=== PATIENT | male | born 1950 | race African-American/Black ===

== ENCOUNTER 2019-11-26 14:56 | Inpatient (IN) | payer OTHER ==
[2019-11-26] MEDS ORDERED: methylPREDNISolone NA SUCC 125 MG/2 ML VIAL IVPB ONE (15:02)
--- NOTE | 2019-11-26 15:02 | PDOC ---
Rapid Medical Evaluation Medical Evaluation: I have performed a brief in-person evaluation of this patient. The patient presents with a chief complaint of: hx of HTN, sciatica, COPD (not on oxygen), with chronic SOB, worsening yesterday; used COPD meds without much relief of sxs Pertinent physical exam findings: tachypneic, +wheezing I have ordered the following: labs, ekg, cxr, meds The patient will proceed to the ED for further evaluation. 11/26/19 14:58
[2019-11-26] MEDS ORDERED: ALBUTEROL SO4 2.5/IPRATROPIUM 0.5 INH SOL 3 ML VIAL.NEB. NEB ONE (15:37)
[2019-11-26] MEDS ORDERED: methylPREDNISolone NA SUCC 125 MG/2 ML VIAL ONE (15:38)
[2019-11-26] MEDS: ALBUTEROL SO4 2.5/IPRATROPIUM 0.5 INH SOL 3 ML VIAL.NEB. NEB SCH ×3 (15:45→16:39)
--- NOTE | 2019-11-26 15:52 | PDOC ---
History of Present Illness - General Chief Complaint: Shortness of Breath Stated Complaint: SOB Time Seen by Provider: 11/26/19 14:58 - History of Present Illness Initial Comments: 69M PMH HTN COPD (not on home O2) Sciatica presenting from chiropractors office for SOB/STALEY x 3 days. Associated nonproductive cough and runny nose, + sick contacts. No f/c. Endorses nonradiating left sided chest pain yesterday that has since resolved, nonexertional. Pt also has sciatic pain that has been constant since 11/08 and unresponsive to ibuprofen. Radiates down to right leg. Started when pt was picking up his and took a bad step on the . Denies numbness, tingling, focal weakness, groin anesthesia, and bowel/bladder incontinence. Pt has had imaging of his back s/p work accident. Denies n/v/d. Allergy to PCN and sulfa drugs. Former smoker Past History - Past Medical History Allergies/Adverse Reactions: Allergies Allergy/AdvReac Type Severity Reaction Status Date / Time Penicillins Allergy Severe Hives Verified 11/26/19 16:06 Sulfa (Sulfonamide Allergy Severe Hives Verified 11/26/19 16:06 Antibiotics) Home Medications: Ambulatory Orders Amlodipine Besylate 10 mg PO HS 11/26/19 Budesonide/Formeterol Fumarate [SYMBICORT 160/4.5mcg -] 1 inh PO BID 11/26/19 Acetaminophen [Tylenol -] 1,000 mg PO Q6H PRN #120 tablet 11/29/19 Albuterol Sulfate Inhaler - [Ventolin HFA Inhaler -] 1 - 2 inh PO Q4H PRN #1 inhaler 11/29/19 Gabapentin [Neurontin -] 300 mg PO TID #90 capsule 11/29/19 Ibuprofen 400 mg PO Q6H PRN #60 tablet 11/29/19 Pantoprazole Sodium 40 mg PO DAILY #30 tablet. 11/29/19 Ropinirole HCl [Requip -] 0.25 mg PO HS #30 tablet 11/29/19 Tiotropium [place] [Spiriva Respimat] 2 puff IH DAILY #1 inhaler 11/29/19 predniSONE [Deltasone -] 20 mg PO UTDICT #4 tablet 11/29/19 COPD: Yes HTN: Yes Hypercholesterolemia: Yes Other medical history: cervical and lower back problems - Psycho Social/Smoking Cessation Hx Smoking History: Never smoked Hx Alcohol Use: No Drug/Substance Use Hx: No Review of Systems - Review of Systems Comments:: CONSTITUTIONAL: Denies F / C. Endorses sick contacts. HEENT: Denies headache, lightheadedness, dizziness, changes in vision / hearing , diplopia, blurry vision, sore throat, rhinorrhea RESP: Endorses SOB/STALEY, cough. CARD: Endorsed prior since resolved chest pain GI: Endorses occasional mild epigastric abd pain. Denies N / V / D, bloody stool , inability to tolerate PO, bowel incontinence. : Denies dysuria, hematuria, frequency. Denies bladder incontinence SKIN: Denies rashes NEURO: Denies numbness, tingling, focal weakness (does state his RLE is weaker but 2/2 pain and is usual). MSK: Endorses back pain *Physical Exam - Vital Signs Last Vital Signs Temp Pulse Resp BP Pulse Ox 97.4 F L 109 H 24 H 147/95 100 11/26/19 14:56 11/26/19 14:56 11/26/19 14:56 11/26/19 14:56 11/26/19 14:56 - Physical Exam VITALS: tachycardic, SaO2 97%, rectal temp 100.1 GEN: Dyspnic, moderate distress due to pain. AAOx3. HEENT: NC/AT. No facial asymmetry. Normal voice. Supple neck w/ FROM. CV: S1/S2, RRR, no m/r/g LUNG: Poor air movement b/l; prolonged expiratory phase w/ expiratory wheezes. Saturating well on RA. No crackles. Increased work of breathing. GI: Mild TTP of the epigastrium otherwise soft, ndnt, +BS, no guarding, no rebound. No masses EXTREMITIES: No LE edema. No obvious deformities of all extremities. FROM LLE, limited ROM RLE 2/2 pain. Poor LE reflexes but symmetric. SKIN: Warm, dry, no rashes appreciated. PSYCH: Normal mood and affect. NEURO: 5/5 LLE strength. strength testing limited on RLE but 5/5 plantar and dorsiflexion. Symmetric sensation. Heart Score/ECG Review - History History: Slightly suspicious - Electrocardiogram EKG: Normal - Age Age: >/= 65 - Risk Factors Risk Factors Heart Score: Yes Hx Hypertension, Yes Smoking History Based on the list above the patient has:: 1-2 risk factors - Troponin Troponin: </= normal limit - Score Heart Score - Total: 3 ED Treatment Course - LABORATORY CBC & Chemistry Diagram: 11/29/19 07:50 11/29/19 07:50 Medical Decision Making - Medical Decision Making 11/26/19 15:50 69M PMH HTN COPD (not on home O2) Sciatica presenting from chiropractors office for SOB/STALEY x 3 days in setting of sciatic pain since 11/08. Neurologically intact but limited exam 2/2 pain. Tight/reduced air movt, expiratory wheezes. Tachycardic. Apparent discomfort from pain. DDx - COPD exacerbation, bronchitis, ACS, PE; sciatica - RME labs - duonebs - CXR, EKG - pain ctrl - BCX, flu swab less tight, better movt, still expiratory wheezes b/l s/p 2 duonebs 11/26/19 18:23 pt is feeling much better s/p tylenol pt breathing much better s/p 3 duonebs, and solu-medrol On rpt exam: noticably less discomfort; equal air entry b/l, improved movement, less expiratory wheezing vs prior exam Pt seen resting and in no apparent distress. - obtaining CTA r/o PE - Mag and NS hanging now 11/26/19 19:37 f/u CTA - CT A/P - B/L Duplex 11/26/19 20:00 CTA IMPRESSION: Evaluation for possible pulmonary embolism is limited as noted above. No obvious central pulmonary embolism is seen. Repeat CT angiography may be considered and/or correlation with bilateral lower extremity venous sonography. No infiltrate or pleural effusion is identified. Possible 0.5 cm right upper lobe ground glass pulmonary nodule. Correlation with 3 month follow-up noncontrast CT is suggested. 11/26/19 20:26 EKG HR 109 NV 134 QRS 78 QTc 433; sinus on rhythm strip. No acute path on CT A/P 11/26/19 20:57 Neg DVT study b/l // admitted Discharge - Discharge Information Problems reviewed: Yes Clinical Impression/Diagnosis: COPD exacerbation, Chest pain Condition: Stable - Admission Yes - Follow up/Referral - Patient Discharge Instructions - Post Discharge Activity
[2019-11-26] MEDS ORDERED: ACETAMINOPHEN 1000 MG/100 ML VIAL (NON FORMULARY) IVPB ONE (16:03)
[2019-11-26] MEDS ORDERED: FAMOTIDINE 20 MG/50 ML IVPB 20 MG/50 ML MG IVPB ONE ×2 (16:05→16:24)
[2019-11-26] MEDS ORDERED: MAGNESIUM SULF 50% (8.12 MEQ/2 ML-1 GM VIAL) IVPB ONE (16:12)
[2019-11-26 16:19] LABS: VENOUS PC02 40.9 mmHg (38-52); VENOUS PH 7.36 (7.31-7.41)
[2019-11-26 16:20] LABS: VENOUS PO2 < 49 mmHg (28-48)
[2019-11-26] MEDS ORDERED: ACETAMINOPHEN INJECTION 100 ML IVPB ONE (16:21)
[2019-11-26 16:23] LABS: BASO % 0.4 % (0-2.0); EOS % 0.9 % (0-4.5); HEMATOCRIT 45.6 % (35.4-49); HEMOGLOBIN 15.2 GM/dL (11.7-16.9); MCH 26.9 pg (25.7-33.7); MCHC 33.3 g/dl (32.0-35.9); MEAN CELL VOLUME 80.7 fl (80-96); MEAN PLT VOLUME 7.6 fl (7.5-11.1); MONO % 16.4 % (3.8-10.2); NEUT % 66.3 % (42.8-82.8); PLATELET COUNT 191 K/MM3 (134-434); RBC 5.65 M/mm3 (4.00-5.60); RDW 13.5 % (11.9-15.9); WHITE BLOOD COUNT 7.1 K/mm3 (4.0-10.0)
[2019-11-26 16:29] LABS: INR 1.03 (0.83-1.09); PROTHROMBIN TIME (PATIENT) 12.2 SEC (9.7-13.0)
[2019-11-26 16:32] LABS: ACTIVATED PTT 32.4 SECONDS (25.2-36.5)
--- NOTE | 2019-11-26 16:34 | PDOC ---
Attending Attestation - Resident Resident Name: Dong Keane - ED Attending Attestation I have performed the following: I have examined & evaluated the patient, The case was reviewed & discussed with the resident, I agree w/resident's findings & plan, Exceptions are as noted - HPI HPI: 11/26/19 16:32 69y M hx of htn, copd sent by chiropractor for matthews, cough and tachycardia. pt endorses nonproductive cough, mild chest pain on the left side that is pleuritic in nature. Patient states his COPD is usually pretty well controlled and he does not regularly use his albuterol however he did use it today with minimal improvement. pt endorses subjective fever/chills. The patient also endorses several weeks of worsening right lower back pain radiating to his right thigh it is worse with movements associated with some tingling down his right leg notes this is chronic he has had a history of herniated disks in the lumbar spine however he was well until approximately 6 to 7 weeks ago when he re -exacerbated his back pain. Patient denies any urinary bowel incontinence, focal weakness, saddle anethesia exam: GENERAL: The patient is awake, alert, and fully oriented, Nontoxic - in no acute distress. HEAD: Normocephalic, atraumatic. EYES: extraocular movements intact, sclera anicteric, conjunctiva clear. ENT: Normal voice, Moist mucous membranes. NECK: Normal range of motion, supple LUNGS: diffuse wheezing bilaerally, moderate respiratory distress. HEART: Regular rate and rhythm, normal S1 and S2 without murmur, rub or gallop. BACK: Mild diffuse right lower back tenderness, no focal bony tenderness, slightly diminished sensation on the right lower extremity ABDOMEN: Soft, nontender, No guarding, no rebound. No CVA tenderness EXTREMITIES: Normal range of motion, movement of right lower extremity limited secondary to back pain NEUROLOGICAL: No facial assymetry, Normal speech, PSYCH: Normal mood, normal affect. SKIN: Warm, Dry, normal turgor, back pain: like sciatcia - will treat with nsaids/tylenol sob - will ro pna, flu, possible copd exacerbation, but consider PE will obtain labs, flu swab, cxr will gie neb, magnesium solumedrol - Physicial Exam PE: see above - Medical Decision Making see above signed out to evening team a 7pm for reevluation and dispo
[2019-11-26 16:36] LABS: ALBUMIN 4.2 g/dl (3.4-5.0); ALK PHOS 117 U/L (45-117); ANION GAP 9 MMOL/L (8-16); BILIRUBIN,TOTAL 0.4 mg/dL (0.2-1); BLOOD UREA NITROGEN 14.8 mg/dL (7-18); CALCIUM 9.3 mg/dL (8.5-10.1); CHLORIDE 105 mmol/L (98-107); CO2 23 mmol/L (21-32); CREATININE 1.1 mg/dL (0.55-1.3); GLUCOSE,RANDOM 85 mg/dL (74-106); POTASSIUM 3.9 mmol/L (3.5-5.1); SGOT/AST 31 U/L (15-37); SGPT/ALT 27 U/L (13-61); SODIUM 137 mmol/L (136-145); TOT PROT 7.7 g/dl (6.4-8.2)
[2019-11-26] MEDS ORDERED: SODIUM CHLORIDE 1,000 ML IV STA (17:48)
[2019-11-26] MEDS ORDERED: MAGNESIUM 1GM/D5W - 2 GM/200 ML IVPB IVPB ONE (18:05)
[2019-11-26] MEDS ORDERED: KETOROLAC TROMETHAMINE 15 MG/ML VIAL IVPUSH ONE (21:07)
--- NOTE | 2019-11-26 21:12 | PN ---
Teaching Attending Note Name of Resident: Debbie Friedman ATTENDING PHYSICIAN STATEMENT I saw and evaluated the patient. I reviewed the resident's note and discussed the case with the resident. I agree with the resident's findings and plan as documented. SUBJECTIVE: Patient is a 69 year old man with a PMH of Penicillin/Sulfa allergy, Marijuana use, HTN, Lumbar herniated disks, COPD (not on home O2) and Sciatica presenting from Chiropractor's office for SOB/STALEY x 3 days. Associated nonproductive cough and runny nose and had contact with his sick grandson. No fever or chills. Had nonradiating, nonexertional left sided chest pain yesterday that has since resolved. Patient also has sciatic pain that has been constant since 11/08 and unresponsive to Ibuprofen. Radiates down to right leg. Started when patient was picking up his and took a bad step on the . Denies numbness, tingling, focal weakness, groin anesthesia, and bowel/bladder incontinence. He has had imaging of his back after work accident. Denies nausea, vomiting, diarrhea, dysuria, headache or dizziness. No recent travel. Former smoker. Denies current alcohol, tobacco or illicit drug use beside marijuana. OBJECTIVE: Alert Vital Signs Period Temp Pulse Resp BP Sys/[place] Pulse Ox Last 24 Hr 97.4 F-100.1 F 105-109 19-24 140-147/95-99 97-100 HEENT: No Jaundice, eye redness or discharge, PERRLA, EOMI. Normocephalic, atraumatic. External ears are normal and hearing is grossly intact. No nasal discharge. Neck: Supple, nontender. No palpable adenopathy or thyromegaly. No JVD Chest: Good effort. Expiratory wheezing. Clear to percussion. Heart: Regular. No S3, rub or murmur Abdomen: Not distended, soft, nontender and no HSM. No rebound or guarding. Normal bowel sounds. Ext: Peripheral pulses intact. No leg edema. Skin: Warm and dry. No petechiae, rash or ecchymosis. Neuro: Alert. Oriented x3. CN 2-12 grossly intact. Sensation grossly intact in all four extremities. RUE weakness. Psych: Appropriate mood and affect. Good insight. Home Medications Medication Instructions Recorded Amlodipine Besylate 10 mg PO HS 11/26/19 Budesonide/Formeterol Fumarate 1 inh PO BID 11/26/19 [SYMBICORT 160/4.5mcg -] Abnormal Lab Results 11/26/19 11/26/19 11/26/19 15:45 15:45 21:00 RBC 5.65 H Monocytes % 16.4 H POC VBG pO2 < 49 H VBG HCO3 22.7 L VBG Base Excess -2.1 L Lipase 56 L ASSESSMENT AND PLAN: 1. COPD exacerbation - Likely precipitated by URI. CXR shows hyperinflation but no acute infiltrates. No acute vascular abnormality noted on CT of abdomen/ pelvis. CTA chest didnot show a pulmonary embolism, but noted a RUL nodule that will be followed up. Flu swab is negative. EKG shows sinus tachycardia at 109/ minute and LAE. In the ER he got IV Toradol, IV Tylenol, IV NS, Solumedrol, MgSO 4 and IV Pepcid. Will continue duoneb, solumedrol, symbicort and azithromycin. Will continue comprehensive care for all of patients comorbid conditions. 2. Hypertension - Restart suitable outpatient antihypertensive drugs when clinically appropriate. Revise regimen to ensure [id number] excellent BP control and safety counselor patient on the injurious effects of uncontrolled hypertension. Nonpharmacologic measures to control hypertension like weight loss , salt restriction and exercise discussed. Importance of adherence to treatment regimen and attainment of normotension emphasized. 3. DVT prophylaxis - Lovenox 40 mg SQ q 24 hours. 4. Advance directives - Full code
[2019-11-26] MEDS ORDERED: KETOROLAC TROMETHAMINE 15 MG/ML VIAL ONE (21:19)
--- NOTE | 2019-11-26 23:02 | HP ---
CHIEF COMPLAINT:SOB/STALEY PCP: Dr Peraza HISTORY OF PRESENT ILLNESS: 69 year old man with a PMH of COPD, Penicillin/Sulfa allergy, HTN, BPH, Lumbar herniated disks with Sciatica presenting from Chiropractor's office for SOB/STALEY x 3 days. Pt admits to having associated nonproductive cough and runny nose since last after his grandson who had a cold visited . No fever or chills. He also endorsed a pressure like nonradiating, nonexertional left sided chest pain yesterday that has since resolved. 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 Denies numbness, tingling, focal weakness, perianal anesthesia, and bowel/bladder incontinence, nausea, vomiting, diarrhea, dysuria, headache or dizziness. No recent travel. Former smoker. ER course was notable for: (1) VS with 100.1 rectal -> 97.4, CBC unremarkable, CMP unremarkable, trop negx2 , flu neg (2) UA pending , EKG sinus tachycardia (3) CXR clear, CTA no evidence of PE, duplex US of BLE neg for DVT Recent Travel: none PAST MEDICAL HISTORY: as above PAST SURGICAL HISTORY: Lipoma removal, Green light prostate surgery Social History: Smoking:former smoker 1pack over 3 days. quit 20 yrs ago Alcohol: social Drugs: 1 marijuana joint on weekend Allergies Penicillins Allergy (Severe, Verified 11/26/19 16:06) Hives Sulfa (Sulfonamide Antibiotics) Allergy (Severe, Verified 11/26/19 16:06) Hives HOME MEDICATIONS: Home Medications Medication Instructions Recorded Amlodipine Besylate 10 mg PO HS 11/26/19 Budesonide/Formeterol Fumarate 1 inh PO BID 11/26/19 [SYMBICORT 160/4.5mcg -] REVIEW OF SYSTEMS CONSTITUTIONAL: Absent: fever, chills, diaphoresis, generalized weakness, malaise, loss of appetite, weight change HEENT: Absent: rhinorrhea, nasal congestion, throat pain, throat swelling, difficulty swallowing, mouth swelling, ear pain, eye pain, visual changes CARDIOVASCULAR: chest pain Absent: , syncope, palpitations, irregular heart rate, lightheadedness, peripheral edema RESPIRATORY: cough, shortness of breath, dyspnea with exertion Absent: orthopnea, wheezing, stridor, hemoptysis GASTROINTESTINAL: Absent: abdominal pain, abdominal distension, nausea, vomiting, diarrhea, constipation, melena, hematochezia GENITOURINARY: Absent: dysuria, frequency, urgency, hesitancy, hematuria, flank pain, genital pain MUSCULOSKELETAL: back pain Absent: myalgia, arthralgia, joint swelling, neck pain SKIN: Absent: rash, itching, pallor HEMATOLOGIC/IMMUNOLOGIC: Absent: easy bleeding, easy bruising, lymphadenopathy, frequent infections ENDOCRINE: Absent: unexplained weight gain, unexplained weight loss, heat intolerance, cold intolerance NEUROLOGIC: Absent: headache, focal weakness or paresthesias, dizziness, unsteady gait, seizure, mental status changes, bladder or bowel incontinence PSYCHIATRIC: Absent: anxiety, depression, suicidal or homicidal ideation, hallucinations. PHYSICAL EXAMINATION Vital Signs - 24 hr 11/26/19 11/26/19 11/26/19 14:56 15:30 17:04 Temperature 97.4 F L 100.1 F H Pulse Rate 109 H Pulse Rate [ Right Radial] Respiratory 24 H Rate Blood Pressure 147/95 Blood Pressure [Right Arm] O2 Sat by Pulse 100 99 Oximetry (%) 11/26/19 11/26/19 11/26/19 19:40 22:16 22:54 Temperature 97.4 F L 97.6 F Pulse Rate Pulse Rate [ 105 H 95 H Right Radial] Respiratory 19 Rate Blood Pressure Blood Pressure 140/99 161/94 [Right Arm] O2 Sat by Pulse 97 98 96 Oximetry (%) GENERAL: Awake, alert, and fully oriented, in mod distress. HEAD: Normal with no signs of trauma. EYES: Pupils equal, round and reactive to light, extraocular movements intact, sclera anicteric, conjunctiva clear. No lid lag. EARS, NOSE, THROAT: oropharynx clear without exudates. Moist mucous membranes. NECK: Normal range of motion, supple without lymphadenopathy, JVD, or masses. LUNGS: Breath sounds equal, clear to auscultation bilaterally. mild-mod diffused wheezes, and no crackles. No accessory muscle use. HEART: Regular rate and rhythm, normal S1 and S2 without murmur, rub or gallop. ABDOMEN: Soft, epigastric tenderness, not distended, normoactive bowel sounds, no guarding, no rebound, no masses. No hepatomegaly or splenomegaly. MUSCULOSKELETAL: Normal range of motion at all joints. No bony deformities or tenderness. No CVA tenderness. UPPER EXTREMITIES: 2+ pulses, warm, well-perfused. No cyanosis. No clubbing. No peripheral edema. LOWER EXTREMITIES: 2+ pulses, warm, well-perfused. No calf tenderness. No peripheral edema. NEUROLOGICAL: Cranial nerves II-XII intact. Normal speech. motor strength 5/5 in all musce groups except for hip flexion and knee flexion on the right 3/5. sensation reduced on L5 distribution. walks with cane PSYCHIATRIC: Cooperative. Good eye contact. Appropriate mood and affect. SKIN: Warm, dry, normal turgor, no rashes or lesions noted, normal capillary refill. Laboratory Results - last 24 hr 11/26/19 11/26/19 11/26/19 15:45 15:45 15:45 WBC 7.1 RBC 5.65 H Hgb 15.2 Hct 45.6 MCV 80.7 MCH 26.9 MCHC 33.3 RDW 13.5 Plt Count 191 MPV 7.6 Absolute Neuts (auto) 4.7 Neutrophils % 66.3 Lymphocytes % 16.0 Monocytes % 16.4 H Eosinophils % 0.9 Basophils % 0.4 Nucleated RBC % 0 PT with INR INR PTT (Actin FS) VBG pH POC VBG pCO2 POC VBG pO2 VBG HCO3 VBG O2 Sat (Nadya) VBG Base Excess Sodium 137 Potassium 3.9 Chloride 105 Carbon Dioxide 23 Anion Gap 9 BUN 14.8 Creatinine 1.1 Est GFR (CKD-EPI)AfAm 78.41 Est GFR (CKD-EPI)NonAf 67.66 Random Glucose 85 Calcium 9.3 Total Bilirubin 0.4 AST 31 ALT 27 Alkaline Phosphatase 117 Troponin I < 0.02 B-Natriuretic Peptide 65.2 Total Protein 7.7 Albumin 4.2 Lipase Influenza A (Rapid) Influenza B (Rapid) 11/26/19 11/26/19 11/26/19 15:45 15:45 18:00 WBC RBC Hgb Hct MCV MCH MCHC RDW Plt Count MPV Absolute Neuts (auto) Neutrophils % Lymphocytes % Monocytes % Eosinophils % Basophils % Nucleated RBC % PT with INR 12.20 INR 1.03 PTT (Actin FS) 32.4 VBG pH 7.36 POC VBG pCO2 40.9 POC VBG pO2 < 49 H VBG HCO3 22.7 L VBG O2 Sat (Nadya) 75.8 VBG Base Excess -2.1 L Sodium Potassium Chloride Carbon Dioxide Anion Gap BUN Creatinine Est GFR (CKD-EPI)AfAm Est GFR (CKD-EPI)NonAf Random Glucose Calcium Total Bilirubin AST ALT Alkaline Phosphatase Troponin I B-Natriuretic Peptide Total Protein Albumin Lipase Influenza A (Rapid) Negative Influenza B (Rapid) Negative 11/26/19 11/26/19 21:00 21:00 WBC RBC Hgb Hct MCV MCH MCHC RDW Plt Count MPV Absolute Neuts (auto) Neutrophils % Lymphocytes % Monocytes % Eosinophils % Basophils % Nucleated RBC % PT with INR INR PTT (Actin FS) VBG pH POC VBG pCO2 POC VBG pO2 VBG HCO3 VBG O2 Sat (Nadya) VBG Base Excess Sodium Potassium Chloride Carbon Dioxide Anion Gap BUN Creatinine Est GFR (CKD-EPI)AfAm Est GFR (CKD-EPI)NonAf Random Glucose Calcium Total Bilirubin AST ALT Alkaline Phosphatase Troponin I < 0.02 B-Natriuretic Peptide Total Protein Albumin Lipase 56 L Influenza A (Rapid) Influenza B (Rapid) ASSESSMENT/PLAN: 69 year old man with a PMH of COPD, Penicillin/Sulfa allergy, HTN, BPH, Lumbar herniated disks with Sciatica presenting from Chiropractor's office for SOB/STALEY x 3 days with +sick contact and URI symptoms. admitted for COPD exacerbation and worsening sciatic/back pain COPD exacerbation 2/2 recent URI cough, runny nose, +sick contact, low grade temp on admission received solumedrol 125, duonebs, mag, orfimev will cont with solumedrol 40 Q8h duonebs, symbicort, ventolin PRN NC 2L as needed Acute worsening of Chronic back pain and sciatica in the setting of recent "pulled back" pt has hx of chronic back pain s/p trauma in 2013, sciatica from lumbar disc disease currently having constant 7/10 pain radiating down to right leg with neuro PE findings above will start topical lidocaine patch, bengae, toradol, tylenol PRN consider neuro/pain management HTN currently BP stable at 140/99 mmHg cont home meds once med rec DVT Lovenox daily Admit to med surge Visit type - Emergency Visit Emergency Visit: Yes ED Registration Date: 11/26/19 Care time: The patient presented to the Emergency Department on the above date and was hospitalized for further evaluation of their emergent condition. - New Patient This patient is new to me today: No - Critical Care Critical Care patient: No ATTENDING PHYSICIAN STATEMENT I saw and evaluated the patient. I reviewed the resident's note and discussed the case with the resident. I agree with the resident's findings and plan as documented. SUBJECTIVE: OBJECTIVE: ASSESSMENT AND PLAN:
[2019-11-27] MEDS ORDERED: ALBUTEROL SO4 2.5/IPRATROPIUM 0.5 INH SOL 3 ML VIAL.NEB. NEB PRN (01:39)
[2019-11-27] MEDS: methylPREDNISolone NA SUCC 40 MG/1 ML VIAL IVPUSH SCH ×3 (02:12→18:00)
[2019-11-27] MEDS ORDERED: ACETAMINOPHEN 325 MG TABLET (FP) ONE (04:29)
[2019-11-27] MEDS ORDERED: KETOROLAC TROMETHAMINE 15 MG/ML VIAL ONE (04:32)
[2019-11-27] MEDS ORDERED: ALBUTEROL SO4 2.5/IPRATROPIUM 0.5 INH SOL 3 ML VIAL.NEB. NEB ONE ×2 (04:35→08:42)
[2019-11-27] MEDS: ACETAMINOPHEN 325 MG TABLET (FP) PO PRN (04:37)
[2019-11-27] MEDS: ALBUTEROL SO4 0.083% IH SOL 2.5 MG/3 ML VIAL.NEB. NEB PRN (04:37)
[2019-11-27] MEDS: KETOROLAC TROMETHAMINE 15 MG/ML VIAL IVPUSH PRN ×3 (04:37→18:01)
[2019-11-27 06:09] LABS: BASO % 0.9 % (0-2.0); HEMATOCRIT 45.1 % (35.4-49); HEMOGLOBIN 14.8 GM/dL (11.7-16.9); LYMPH % 11.7 % (8-40); MCH 26.5 pg (25.7-33.7); MCHC 32.8 g/dl (32.0-35.9); MEAN CELL VOLUME 80.8 fl (80-96); MEAN PLT VOLUME 7.6 fl (7.5-11.1); MONO % 4.8 % (3.8-10.2); NEUT % 82.6 % (42.8-82.8); PLATELET COUNT 209 K/MM3 (134-434); RBC 5.58 M/mm3 (4.00-5.60); RDW 13.6 % (11.9-15.9); WHITE BLOOD COUNT 3.7 K/mm3 (4.0-10.0)
[2019-11-27 06:40] LABS: ALBUMIN 4.1 g/dl (3.4-5.0); BILIRUBIN,TOTAL 0.3 mg/dL (0.2-1); BLOOD UREA NITROGEN 19.1 mg/dL (7-18); CALCIUM 9.2 mg/dL (8.5-10.1); CREATININE 1.1 mg/dL (0.55-1.3); MAGNESIUM 2.4 mg/dL (1.8-2.4); PHOSPHOROUS 3.3 mg/dL (2.5-4.9); POTASSIUM 4.5 mmol/L (3.5-5.1); TOT PROT 7.9 g/dl (6.4-8.2)
[2019-11-27] MEDS: ALBUTEROL SO4 2.5/IPRATROPIUM 0.5 INH SOL 3 ML VIAL.NEB. NEB SCH ×4 (08:45→20:35)
--- NOTE | 2019-11-27 09:30 | EKG ---
Test Reason : Blood Pressure : / mmHG Vent. Rate : 109 BPM Atrial Rate : 109 BPM P-R Int : 134 ms QRS Dur : 078 ms QT Int : 322 ms P-R-T Axes : 079 068 061 degrees QTc Int : 433 ms SINUS TACHYCARDIA POSSIBLE LEFT ATRIAL ENLARGEMENT BORDERLINE ECG NO PREVIOUS ECGS AVAILABLE Confirmed by Jean Viveros MD ([id number]) on 11/27/2019 9:29:51 AM Referred By: Confirmed By:Jean Viveros MD
[2019-11-27] MEDS ORDERED: BUDESONIDE/FORMETEROL FUMARATE 80/4.5 mcg INHALER IH SCH (10:00)
[2019-11-27] MEDS: amLODIPine BESYLATE 10 MG TABLET (FP) PO SCH ×2 (10:15→11:38)
[2019-11-27] MEDS ORDERED: AZITHROMYCIN IVPB 500 MG/250 ML BAG IVPB ONE (10:37)
[2019-11-27] MEDS ORDERED: amLODIPine BESYLATE 5 MG TABLET (FP) ONE (10:37)
[2019-11-27] MEDS ORDERED: KETOROLAC TROMETHAMINE 60 MG/2 ML VIAL ONE (10:57)
[2019-11-27] MEDS: LIDOCAINE 5% TOPICAL PATCH TP SCH (11:13)
[2019-11-27] MEDS: ENOXAPARIN NA (PORCINE) 40 MG/0.4 ML DISP.SYRIN SQ SCH (11:13)
[2019-11-27] MEDS: METHYL SALICYLATE/MENTHOL OINT 30 GM TUBE TP SCH ×2 (11:13→21:54)
[2019-11-27] MEDS: BUDESONIDE/FORMETEROL FUMARATE 160/4.5 mcg INHALER IH SCH ×3 (11:14→22:00)
[2019-11-27] MEDS: AZITHROMYCIN IVPB 250 MG in DEXTROSE 5%-WATER - 250 ML IVPB SCH ×2 (11:16→11:38)
[2019-11-27] MEDS ORDERED: PNEUMOC 13-VAL CONJ-DIP CRM/PF 0.5 ML DISP.SYRIN IM ONE (14:00)
[2019-11-27] MEDS ORDERED: oxyCODONE HCL 5 MG TABLET PO ONE ×2 (14:00→18:45)
[2019-11-27] MEDS ORDERED: FLU VACCINE QUAD 60 MCG/0.5 ML (MDV 19-20) IM ONE (14:00)
--- NOTE | 2019-11-27 17:12 | PN ---
Teaching Attending Note Name of Resident: Milton Perdue ATTENDING PHYSICIAN STATEMENT I saw and evaluated the patient. I reviewed the resident's note and discussed the case with the resident. I agree with the resident's findings and plan as documented. SUBJECTIVE: SOB, but improved. Has pain in lower back with radiation to the RLE. Pain and weakness in RLE is worse than baseline. Weakness in RUE and neck pain is still the same. No urinary or fecal incontinence. OBJECTIVE: NAD, became very SOB when he tried to move LE due to pain . CV: RRR, n o MRG Lungs: scattered wheezing b/l. prolonged exp phase Ext : No edema or erythema Neuro: EOMI, round equal pupils, no facial droop. strength : RUE: 4/5 sholder abduction , and biceps/triceps . LUE: 5/5 shoudler shrug, abduction , and biceps /triceps RLE: hip flexion 1/5 ( limited by pain) , Knee flexion and extension( he refused due to pain ) . ankle dorsiflexion/plantar flexion 5/5. LLE: hip flexion , knee flexion /extension, ankle dorsiflexion/plantar flexion 5 /5. sensation : decreased to light touch in R leg and dorsal foot. increased in R sole, and equal in both thighs. reflexes : 1+ R knee jerk and 2+ L knee jerk ASSESSMENT AND PLAN: 69 y/o man with h/o Marijuana use, HTN, Lumbar herniated disks, COPD and Sciatica who presented with SOb and worsening RLE weakness and lower back pain. 1- Acute COPD exacerbation 2- Worsening lower back pain RLE weakness. 3- Pulmonary nodule: 0.5 cm in RUL. 4- HTN plan : - order MRI of the L spine. - lidocaine patch to lower back - cont steroids and nebs - cont inhalers - add low dose azithro, x 3 days - f/u as out pt for pulmonary nodule - lovenox for DVT px
--- NOTE | 2019-11-27 18:05 | PN ---
Physical Exam: SUBJECTIVE: Patient seen and examined at the bedside. Patient stated that he has significant pain in his right back radiating down his leg. Endorsed shortness of breath, palpitations, productive cough. Denied cp, abd pain, n/v/c/ d, headaches, dizziness, lightheadedness. OBJECTIVE: Vital Signs Period Temp Pulse Resp BP Sys/[place]illa Pulse Ox Last 24 Hr 97.4 F-98.1 F 70-108 18-22 140-167/78-99 96-99 GENERAL: The patient is awake, alert, and fully oriented, in mild acute distress. HEAD: Normal with no signs of trauma. EYES: PERRL, extraocular movements intact. ENT: Oropharynx clear without exudates, moist mucous membranes. LUNGS: Mild expiratory wheezes, decreased breath sounds, no crackles noted, no accessory muscle use. HEART: Regular rate and rhythm, S1, S2 without murmur, rub. ABDOMEN: Soft, nontender, nondistended, normoactive bowel sounds, no guarding, no rebound, no masses. EXTREMITIES: 2+ pulses, warm, well-perfused, no edema. NEUROLOGICAL: Cranial nerves II through XII grossly intact. 4/5 R upper extremity proximally. 2/5 muscle strength on the RLE proximally, 5/5 distally. All other extremities 5/5 muscle strength. Decreased sensation to gross touch on the R lower extremity distally. PSYCH: Normal mood, normal affect. SKIN: Warm, dry, normal turgor, no rashes or lesions noted. Laboratory Results - last 24 hr 11/26/19 11/26/19 11/26/19 18:00 21:00 21:00 WBC RBC Hgb Hct MCV MCH MCHC RDW Plt Count MPV Absolute Neuts (auto) Neutrophils % Lymphocytes % Monocytes % Eosinophils % Basophils % Nucleated RBC % Sodium Potassium Chloride Carbon Dioxide Anion Gap BUN Creatinine Est GFR (CKD-EPI)AfAm Est GFR (CKD-EPI)NonAf Random Glucose Calcium Phosphorus Magnesium Total Bilirubin AST ALT Alkaline Phosphatase Troponin I < 0.02 Total Protein Albumin Lipase 56 L Influenza A (Rapid) Negative Influenza B (Rapid) Negative 11/27/19 11/27/19 05:45 05:45 WBC 3.7 L RBC 5.58 Hgb 14.8 Hct 45.1 MCV 80.8 MCH 26.5 MCHC 32.8 RDW 13.6 Plt Count 209 MPV 7.6 Absolute Neuts (auto) 3.1 Neutrophils % 82.6 D Lymphocytes % 11.7 D Monocytes % 4.8 Eosinophils % 0.0 D Basophils % 0.9 Nucleated RBC % 0 Sodium 137 Potassium 4.5 Chloride 106 Carbon Dioxide 22 Anion Gap 10 BUN 19.1 H Creatinine 1.1 Est GFR (CKD-EPI)AfAm 78.41 Est GFR (CKD-EPI)NonAf 67.66 Random Glucose 151 H Calcium 9.2 Phosphorus 3.3 Magnesium 2.4 Total Bilirubin 0.3 AST 26 ALT 30 Alkaline Phosphatase 113 Troponin I Total Protein 7.9 Albumin 4.1 Lipase Influenza A (Rapid) Influenza B (Rapid) Active Medications Generic Name Dose Route Start Last Admin Trade Name Freq PRN Reason Stop Dose Admin Acetaminophen 650 mg 11/27/19 01:34 11/27/19 04:37 Tylenol - PO 650 mg Q4H PRN Administration PAIN LEVEL 1 - 3 Albuterol Sulfate 1 amp 11/27/19 01:34 11/27/19 04:37 Ventolin 0.083% Nebulizer Soln - NEB 1 amp Q6H PRN Administration SHORT OF BREATH/WHEEZING Albuterol/Ipratropium 1 amp 11/27/19 08:00 11/27/19 08:45 Duoneb - NEB 1 amp RQID FRANCISCO Administration Amlodipine Besylate 10 mg 11/27/19 11:00 11/27/19 11:38 Norvasc - PO Not Given DAILY FRANCISCO Budesonide/Formoterol Fumarate 1 puff 11/27/19 11:30 11/27/19 15:42 Symbicort 160/4.5mcg - IH 1 puff BID FRANCISCO Administration Enoxaparin Sodium 40 mg 11/27/19 10:00 11/27/19 11:13 Lovenox - SQ 40 mg DAILY FRANCISCO Administration Azithromycin 250 mg/ Dextrose 250 mls @ 250 mls/hr 11/27/19 11:00 11/27/19 11 :38 IVPB 11/29/19 10:59 Not Given DAILY FRANCISCO Ketorolac Tromethamine 15 mg 11/27/19 01:34 11/27/19 11:16 Toradol Injection - IVPUSH 12/02/19 01:33 15 mg Q6H PRN Administration PAIN LEVEL 6-10 Lidocaine 1 patch 11/27/19 10:00 11/27/19 11:13 Lidoderm Patch - TP 1 patch DAILY FRANCISCO Administration Methyl Salicylate 1 applic 11/27/19 10:00 11/27/19 11:13 Yaya-Post - TP Not Given BID [facility] Methylprednisolone Sodium Succinate 40 mg 11/27/19 02:00 11/27/19 10:15 Solu-Medrol - IVPUSH 40 mg Q8H-IV FRANCISCO Administration Miscellaneous 1 each 11/27/19 22:00 Lidoderm Patch Removal MC DAILY@2200 [facility] ASSESSMENT/PLAN: Marly Simons is a 69 year old man with a past medical history of COPD, HTN, BPH, Lumbar herniated disks with Sciatica admitted for COPD exacerbation and worsening sciatic/back pain. COPD exacerbation - likely in the setting of URI, with recent sick contact - solumedrol 40 Q8h, can begin to titrate down as patient clinically improves - duonebs standing, symbicort, ventolin PRN - azithromycin 250mg x 3 days - NC 2L as needed Chronic back pain - pt with hx of chronic back pain s/p trauma in 2012, sciatica from lumbar disc disease - topical lidocaine patch - toradol, bengae, tylenol PRN - MRI of the lumbar spine - physical therapy Pulmonary Nodule - will need outpatient pulmonary f/u HTN - continue home amlodipine DVT - Lovenox 40mg subq daily FEN - no standing fluids, encourage PO intake - continue to monitor electrolytes and replete as necessary - sodium controlled diet Dispo - continue to monitor med surg Visit type - Emergency Visit Emergency Visit: Yes ED Registration Date: 11/26/19 Care time: The patient presented to the Emergency Department on the above date and was hospitalized for further evaluation of their emergent condition. - New Patient This patient is new to me today: Yes Date on this admission: 11/27/19 - Critical Care Critical Care patient: No
[2019-11-27] MEDS ORDERED: PT OWN MED DRAWER 7, Y5N ONE (21:21)
[2019-11-27] MEDS: LIDOCAINE PATCH REMOVAL MC SCH (21:55)
[2019-11-28] MEDS: ALBUTEROL SO4 0.083% IH SOL 2.5 MG/3 ML VIAL.NEB. NEB PRN (00:32)
[2019-11-28] MEDS: methylPREDNISolone NA SUCC 40 MG/1 ML VIAL IVPUSH SCH ×3 (01:00→17:09)
[2019-11-28] MEDS: KETOROLAC TROMETHAMINE 15 MG/ML VIAL IVPUSH PRN ×3 (02:57→16:37)
[2019-11-28] MEDS: ACETAMINOPHEN 325 MG TABLET (FP) PO PRN (03:01)
[2019-11-28] MEDS: ALBUTEROL SO4 2.5/IPRATROPIUM 0.5 INH SOL 3 ML VIAL.NEB. NEB SCH ×2 (07:31→11:12)
[2019-11-28 08:16] LABS: BASO % 0.2 % (0-2.0); HEMATOCRIT 41.1 % (35.4-49); HEMOGLOBIN 13.5 GM/dL (11.7-16.9); LYMPH % 6.2 % (8-40); MCH 26.4 pg (25.7-33.7); MCHC 32.8 g/dl (32.0-35.9); MEAN CELL VOLUME 80.2 fl (80-96); MEAN PLT VOLUME 7.6 fl (7.5-11.1); MONO % 5.1 % (3.8-10.2); NEUT % 88.5 % (42.8-82.8); PLATELET COUNT 201 K/MM3 (134-434); RBC 5.12 M/mm3 (4.00-5.60); RDW 13.4 % (11.9-15.9); WHITE BLOOD COUNT 11.4 K/mm3 (4.0-10.0)
[2019-11-28 08:41] LABS: CALCIUM 9.3 mg/dL (8.5-10.1); CREATININE 1.1 mg/dL (0.55-1.3); MAGNESIUM 2.6 mg/dL (1.8-2.4); POTASSIUM 5.1 mmol/L (3.5-5.1)
--- NOTE | 2019-11-28 09:18 | PN ---
Physical Exam: SUBJECTIVE: Patient seen and examined at the bedside. Noted that he felt better but still continued to take shortness of breath and a cough. Continued to endorse pain in his right lower leg and numbness in the lower portion of the R extremity. Denies cp, abd pain, n/v/c/d, fever, chills, dizziness, lightheadedness. OBJECTIVE: Vital Signs Period Temp Pulse Resp BP Sys/Sevilla Pulse Ox Last 24 Hr 97.7 F-98.2 F 70-106 18-20 120-159/72-84 97-99 GENERAL: The patient is awake, alert, and fully oriented, in mild acute distress. HEAD: Normal with no signs of trauma. EYES: PERRL, extraocular movements intact. ENT: Oropharynx clear without exudates, moist mucous membranes. LUNGS: Mild expiratory wheezes, decreased breath sounds, coarse breath sounds, no crackles noted, no accessory muscle use. HEART: Regular rate and rhythm, S1, S2 without murmur, rub. ABDOMEN: Soft, nontender, nondistended, normoactive bowel sounds, no guarding, no rebound, no masses. EXTREMITIES: 2+ pulses, warm, well-perfused, no edema. NEUROLOGICAL: Cranial nerves II through XII grossly intact. 4/5 R upper extremity proximally. 2/5 muscle strength on the RLE proximally, 5/5 distally. All other extremities 5/5 muscle strength. Decreased sensation to gross touch on the R lower extremity distally. PSYCH: Normal mood, normal affect. SKIN: Warm, dry, normal turgor, no rashes or lesions noted. Laboratory Results - last 24 hr 11/28/19 11/28/19 07:35 07:35 WBC 11.4 H RBC 5.12 Hgb 13.5 Hct 41.1 MCV 80.2 MCH 26.4 MCHC 32.8 RDW 13.4 Plt Count 201 MPV 7.6 Absolute Neuts (auto) 10.1 H Neutrophils % 88.5 H Lymphocytes % 6.2 L D Monocytes % 5.1 Eosinophils % 0.0 Basophils % 0.2 Nucleated RBC % 0 Sodium 138 Potassium 5.1 Chloride 106 Carbon Dioxide 26 Anion Gap 6 L BUN 22.0 H Creatinine 1.1 Est GFR (CKD-EPI)AfAm 78.41 Est GFR (CKD-EPI)NonAf 67.66 Random Glucose 141 H Calcium 9.3 Magnesium 2.6 H Active Medications Generic Name Dose Route Start Last Admin Trade Name Freq PRN Reason Stop Dose Admin Acetaminophen 650 mg 11/27/19 01:34 11/28/19 03:01 Tylenol - PO 650 mg Q4H PRN Administration PAIN LEVEL 1 - 3 Albuterol Sulfate 1 amp 11/27/19 01:34 11/28/19 00:32 Ventolin 0.083% Nebulizer Soln - NEB 1 amp Q6H PRN Administration SHORT OF BREATH/WHEEZING Albuterol/Ipratropium 1 amp 11/27/19 08:00 11/28/19 07:31 Duoneb - NEB 1 amp RQID FRANCISCO Administration Amlodipine Besylate 10 mg 11/27/19 11:00 11/27/19 11:38 Norvasc - PO Not Given DAILY [facility] Budesonide/Formoterol Fumarate 1 puff 11/27/19 11:30 11/27/19 22:00 Symbicort 160/4.5mcg - IH 1 puff BID FRANCISCO Administration Enoxaparin Sodium 40 mg 11/27/19 10:00 11/27/19 11:13 Lovenox - SQ 40 mg DAILY FRANCISCO Administration Azithromycin 250 mg/ Dextrose 250 mls @ 250 mls/hr 11/27/19 11:00 11/27/19 11 :38 IVPB 11/29/19 10:59 Not Given DAILY FRANC[facility]CO Ketorolac Tromethamine 15 mg 11/27/19 01:34 11/28/19 02:57 Toradol Injection - IVPUSH 12/02/19 01:33 15 mg Q6H PRN Administration PAIN LEVEL 6-10 Lidocaine 1 patch 11/27/19 10:00 11/27/19 11:13 Lidoderm Patch - TP 1 patch DAILY FRANCISCO Administration Methyl Salicylate 1 applic 11/27/19 10:00 11/27/19 21:54 Yaya-Post - TP 1 applic BID FRANCISCO Administration Methylprednisolone Sodium Succinate 40 mg 11/27/19 02:00 11/28/19 01:00 Solu-Medrol - IVPUSH 40 mg Q8H-IV FRANCISCO Administration Miscellaneous 1 each 11/27/19 22:00 11/27/19 21:55 Lidoderm Patch Removal MC 1 each DAILY@2200 FRANCISCO Administration Lumbar MRI L2-L3. Facet joint arthropathy. Mild degenerative retrolisthesis of L2 on L3 is suggested. Circumferential disc bulge extending beyond the contour adjacent endplates in all directions. No compression of L2 nerves traversing through the neural foramina. There is remodeling of the superior posterior corner of L3 sequela of chronic degenerative discogenic disease. Right subarticular, right lateral recess extruded disc causing stenosis of the right lateral recess of L3 effacing the epidural fat deforming the thecal sac compressing right L3 nerve within the right lateral recess of L3. L4-L5. Hypertrophic facet joint arthropathy with thickened ligamentum flavum. Grade 1 degenerative anterior spondylolisthesis of L4 on L5 (6mm). Exposed posterior annulus within the right neural foramen contacting the right L4 nerve. ASSESSMENT/PLAN: Marly Simons is a 69 year old man with a past medical history of COPD, HTN, BPH, Lumbar herniated disks with Sciatica admitted for COPD exacerbation and worsening sciatic/back pain. COPD exacerbation - likely in the setting of URI, with recent sick contact - will start prednisone 60mg tomorrow - ventolin prn - spiriva - can restart symbicort when off of steroids - Xopinex tid - continue azithromycin 250mg x 3 days, day 2 today - NC 2L as needed - incentive spirometry - will need PFTs outpatient Chronic back pain - pt with hx of chronic back pain s/p trauma in 2012, sciatica from lumbar disc disease - topical lidocaine patch - toradol, bengae, tylenol PRN - gabapentin 300mg tid - MRI of the lumbar spine as above - neurosurgery consulted, recs appreciated, will likely benefit from surgery. can f/u outpatient when stable from pulmonary standpoint - physical therapy Pulmonary Nodule - will need outpatient pulmonary f/u HTN - continue home amlodipine DVT - Lovenox 40mg subq daily FEN - no standing fluids, encourage PO intake - continue to monitor electrolytes and replete as necessary - sodium controlled diet Dispo - continue to monitor med surg Visit type - Emergency Visit Emergency Visit: Yes ED Registration Date: 11/26/19 Care time: The patient presented to the Emergency Department on the above date and was hospitalized for further evaluation of their emergent condition. - New Patient This patient is new to me today: No - Critical Care Critical Care patient: No
[2019-11-28] MEDS: LIDOCAINE 5% TOPICAL PATCH TP SCH (09:26)
[2019-11-28] MEDS: amLODIPine BESYLATE 10 MG TABLET (FP) PO SCH (09:26)
[2019-11-28] MEDS: ENOXAPARIN NA (PORCINE) 40 MG/0.4 ML DISP.SYRIN SQ SCH (09:26)
[2019-11-28] MEDS: METHYL SALICYLATE/MENTHOL OINT 30 GM TUBE TP SCH ×3 (09:28→22:12)
[2019-11-28] MEDS: BUDESONIDE/FORMETEROL FUMARATE 160/4.5 mcg INHALER IH SCH (09:28)
--- NOTE | 2019-11-28 10:13 | PN ---
Progress Note (short form) - Note Progress Note: NEUROSURGERY CONSULT DICTATED Chart reviewed Pt examined MRI LS spine reviewed h/o COPD, HTN, BPH, Lumbar HNP c/o SOB/STALEY x 3 days. + nonproductive cough and runny nose. No fever or chills. Since 11/08, Patient has been experiencing constant 8/10 sciatica pain after "pulling his back" .The pain is unresponsive to Ibuprofen, and radiates down to right lateral thigh and lateral gupta. + weakness and leg gives out sometimes. + numbness and burning. Had R posterior thigh pain and R anterior thigh pain previously. Denies perianal anesthesia, and bowel/bladder incontinence, PE: General- unremarkable CN- intact; Motor- R IP/thigh adductors 4-, R TA/Ev/Quad 4/5; Sensation- decreased LT/vibration R L3-4; DTR- hyporeflexic; + SLR on R at 30 degrees MRI LS- multilevel DDD and facet hypertrophy; mild L2-3 retrolisthesis with broadbased and B foramenal disc protrusion; subarticular disc fragment with R L3 root impingement and thecal sac impingement; L4-5 spondylolisthesis and lateral recess stenosis R L2-3 HNP with acute-subacute R L3 radiculopathy Trial of neurontin Consider pain management for EPSI Given recent respiratory infection would not recommend surgery at this time, though given his weakness/numbness surgery may be the optimal tx option when he recovers Pt understands the above
[2019-11-28] MEDS: AZITHROMYCIN IVPB 250 MG in DEXTROSE 5%-WATER - 250 ML IVPB SCH (12:19)
[2019-11-28] MEDS ORDERED: ALBUTEROL SO4 0.083% IH SOL 2.5 MG/3 ML VIAL.NEB. NEB PRN (12:22)
[2019-11-28] MEDS: GABAPENTIN 300 MG CAPSULE PO SCH ×2 (13:39→22:12)
[2019-11-28] MEDS: TIOTROPIUM BROMIDE 2.5 MCG (SPIRIVA) RESPIMAT INHALER IH SCH (13:39)
--- NOTE | 2019-11-28 13:51 | CONS ---
DATE OF CONSULTATION: 11/28/2019 CHIEF COMPLAINT: Right L3-L4 radiculopathy. REQUESTING PHYSICIAN: Dr. Milton Perdue STUDIO SET UP WORKER: Andrés Alan MD, Neurosurgery HISTORY OF PRESENT ILLNESS: Patient is a 69-year-old male with a history of lower back pain with right-sided sciatica, COPD, hypertension, and BPH who was admitted for a 3-day history of increasing dyspnea as well as dyspnea on exertion. He also had an associated productive cough but denies any fevers or chills. He stated that he has had lower back pain, right-sided sciatica going down to the right anterior thigh and occasionally the right posterior thigh over the past few days. They would generally resolve with the passage of time, and they are not generally severe or persistent. 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 This is associated with subjective weakness right leg, and his right leg gives out at times. There is also numbness in the right thigh. Pain is rated as an 8 on a 1-10 scale. He thought he had pulled his back back then. His pain did not respond to ibuprofen or chiropractor treatment. He has numbness and burning in the right similar distribution. He denies perianal anesthesia or any bowel/bladder incontinence. He has not tried epidural steroid injections. PAST MEDICAL HISTORY: Significant for COPD, hypertension, BPH, lumbar hernia disk with sciatica. CURRENT MEDICATIONS: Include Symbicort, Lidoderm patch, Solu-Medrol, Tylenol, azithromycin, Lovenox, albuterol inhaler, Norvasc, DuoNeb, Toradol, and Bengay. ALLERGIES: PENICILLIN and SULFA. SOCIAL HISTORY: He does not smoke anymore. He drinks alcohol socially. He lives at home with his . He is retired. REVIEW OF SYSTEMS: Otherwise negative for major constitutional, head, neck, cardiovascular, pulmonary, gastrointestinal, genitourinary, endocrinological, neurological, or psychological problems except for the above. He has no history of systemic malignancy. PHYSICAL EXAMINATION: Vital Signs: Temperature 98.2, blood pressure 120/72, pulse rate 80, O2 saturation 97% on room air. HEENT: Shows him to be normocephalic, atraumatic, anicteric. Neck: Supple. Coronary: Demonstrates regular rhythm. Lungs: Clear bilaterally. Abdomen: Benign. Extremities: Shows no obvious signs of DVT. Neurologic: He is awake, alert, and oriented x3. Cranial nerve examination is intact 2-12. Motor examination shows 5/5 strength except right iliopsoas and thigh adducts, which are 4-, right quadriceps and tibialis anterior, and for eversion, which is 4/5. Sensory examination demonstrates diminished light touch and vibratory sensation in right L3 and right L4 distribution. Deep tendon reflexes are hyporeflexive throughout. There are no pathological or long tract sign. Musculoskeletal: Examination of lower back shows right sciatic notch tenderness. He has a positive straight leg raise on the right side at 30 degrees. DIAGNOSTIC DATA: Laboratory examination demonstrated a white count of 11.4, hemoglobin 13.5, platelet count 201,000, INR 1.03, and PTT 32.4. Serum sodium is 138, potassium 5.1, BUN 22, creatinine 1.1. Influenza tests were negative. MRI examination of the lumbar spine demonstrated multilevel degenerative disk disease. There is degenerative disk space narrowing at L2-3 with endplate molding changes. There is facet hypertrophy. There are bridging osteophytes. Mild retrolisthesis noted to L2-3. There is a right lateral recess extruded disk herniation in a subarticular joint area, which resulted in thecal sac and right L3 nerve root impingement. At L3-4 there is a broad-based disk bulge with moderate right L3-4 foraminal narrowing. There is L4-5 facet hypertrophy with degenerative spondylolisthesis. There is right-sided L4-5 foraminal stenosis. Lower extremity Doppler did not demonstrate any DVT. IMPRESSION: 1. Right L2-3 extruded disk herniation with thecal sac and L3 nerve root impingement resulting in acute L3 radiculopathy. 2. Right L3-4 and L4-5 narrowing/foraminal stenosis with chronic intermittent lumbar L4-5 radiculopathy. 3. Hypertension. 4. Chronic obstructive pulmonary disease. 5. Recent respiratory infection. RECOMMENDATIONS: Patient presents with exacerbation of his right L3 greater than L4 radiculopathy. His pain radiates down to the buttocks and left thigh down to the right lateral gupta. He has weakness of the proximal right lower extremity as well as his foot eversion and tibialis anterior. He also has numbness in L3 and L4 distribution. He has a positive straight leg raise on the right. He does have multilevel degenerative disk disease, but he also has a concurrent extruded disk herniation on the right side at L2-3 in the lateral recess into the subarticular region. This results in thecal sac right L3 nerve root impingement. He has elements of L3-4 and L4-5 lateral recess narrowing with foraminal stenosis, which contributes to his intermittent sciatica as well in the L4 and L5 distribution. The patient has a recent respiratory infection and should be treated for such first. A trial of Neurontin 300 mg 3 times a day is recommended. If the pain persists, epidural steroid injection could potentially be helpful for temporary pain relief. Given his weakness and numbness of the right lower extremity, surgical intervention may eventually be needed to optimally address his current problems. The patient has not wanted surgery in the past, but this recurrence since October has been persistent, and the pain has been more severe. We did discuss the pros and cons of treatment approaches, and all questions were answered at the bedside. ANDRÉS ALAN M.D. [id number]
[2019-11-28] MEDS: LEVALBUTEROL HCL 0.31 MG/3 ML VIAL.NEB IH SCH ×2 (14:51→20:47)
[2019-11-28 16:07] VITALS: BMI 25.0
[2019-11-28] MEDS ORDERED: rOPINIRole HCL 0.25 MG TABLET PO ONE (16:50)
[2019-11-28] MEDS ORDERED: oxyCODONE HCL 5 MG TABLET PO ONE (16:51)
--- NOTE | 2019-11-28 17:22 | PN ---
Teaching Attending Note Name of Resident: Milton Perdue ATTENDING PHYSICIAN STATEMENT I saw and evaluated the patient. I reviewed the resident's note and discussed the case with the resident. I agree with the resident's findings and plan as documented. Seen and examined; please see resident note for further historical information. I personally verified all [place] historical information and exam findings. Personally interpreted all imaging and diagnostics and reviewed appropriate consults. I reviewed all labs and vital signs as per resident note and EMR as documented. I agree with the above assessment and plan unless supplemented by myself in the following. Complains of chronic cramping pain in his bilateral lower extremity and dependent of the back pain. Sometimes gets worse at night and with physical activity. He does have associated erectile dysfunction. This is suspicious for some degree of claudication, no arterial duplex on file. Checking arterial duplex. Given his discussion of ongoing lower extremity symptoms, though, this is concerning for potential restless leg syndrome. Starting Requip, checking iron studies. VS, labs, imaging reviewed NAD, AAO, resting comfortably in bed. RRR s1/2 no mgr Normal muscle tone, moves all 5 extremities with normal apparent strength Neck is supple, trachea midline, no juvencio LN Lungs CTAB with sym expansion NT ND +BS no juvencio organomegaly CN2-12 wnl; no FND NC AT EOMI PERRLA Normal mood, appropriate behavior, euthymic affect No skin breakdown or rashes noted Arterial Dopplers pending MRI discussed Chest x-ray reviewed EKG reviewed Outpatient PFTs need to be acquired CV Consult reviewed ASSESSMENT AND PLAN: Patient is indicated as having multilevel degenerative joint disease and facet hypertrophy with mild L2-3 retrolisthesis with broad-based foraminal disc protrusion. Neuropathic pain secondary to aforementioned; continues on gabapentin which has helped. Referring the patient for pain management trial for potential epidural steroid injection. Given the recent infection neurology does not recommend surgery at this juncture. Does have radicular elements of this to the lower extremity. Not evolving. COPD exacerbation, continue current management, convert to p.o. and hand-held inhalers prior to discharge. Pulmonary nodule need outpatient pulmonary follow-up
[2019-11-28] MEDS: LIDOCAINE PATCH REMOVAL MC SCH (22:21)
[2019-11-29] MEDS: KETOROLAC TROMETHAMINE 15 MG/ML VIAL IVPUSH PRN ×2 (00:28→09:33)
[2019-11-29] MEDS: ACETAMINOPHEN 325 MG TABLET (FP) PO PRN ×2 (00:33→09:11)
[2019-11-29] MEDS: methylPREDNISolone NA SUCC 40 MG/1 ML VIAL IVPUSH SCH (02:30)
[2019-11-29] MEDS: GABAPENTIN 300 MG CAPSULE PO SCH ×2 (06:19→14:01)
[2019-11-29] MEDS: LEVALBUTEROL HCL 0.31 MG/3 ML VIAL.NEB IH SCH ×2 (07:40→14:20)
--- NOTE | 2019-11-29 08:16 | PN ---
Progress Note (short form) - Note Progress Note: NEUROSURGERY R thigh pain easing slightly PE: General- unremarkable CN- intact; Motor- R IP/thigh adductors 4-, R TA/Ev/Quad 4/5; Sensation- decreased LT/vibration R L3-4; DTR- hyporeflexic; + SLR on R at 30 degrees MRI LS- multilevel DDD and facet hypertrophy; mild L2-3 retrolisthesis with broadbased and B foramenal disc protrusion; subarticular disc fragment with R L3 root impingement and thecal sac impingement; L4-5 spondylolisthesis and lateral recess stenosis R L2-3 HNP with acute-subacute R L3 radiculopathy; R 3-4 and L4-5 stenosis On neurontin Consider pain management for EPSI if persistent pain Given recent respiratory infection, COPD would not recommend surgery at this time (should allow pulmonary condition to return to baseline), though given his weakness/numbness surgery may be the optimal tx option when he recovers Pt understands the above
[2019-11-29] MEDS: amLODIPine BESYLATE 10 MG TABLET (FP) PO SCH (09:12)
[2019-11-29] MEDS: LIDOCAINE 5% TOPICAL PATCH TP SCH (09:12)
[2019-11-29] MEDS: ENOXAPARIN NA (PORCINE) 40 MG/0.4 ML DISP.SYRIN SQ SCH (09:13)
[2019-11-29] MEDS: TIOTROPIUM BROMIDE 2.5 MCG (SPIRIVA) RESPIMAT INHALER IH SCH (09:13)
[2019-11-29 09:23] LABS: BASO % 0.1 % (0-2.0); HEMATOCRIT 40.5 % (35.4-49); HEMOGLOBIN 13.2 GM/dL (11.7-16.9); LYMPH % 5.3 % (8-40); MCH 26.4 pg (25.7-33.7); MCHC 32.6 g/dl (32.0-35.9); MEAN CELL VOLUME 80.8 fl (80-96); MEAN PLT VOLUME 7.9 fl (7.5-11.1); MONO % 5.3 % (3.8-10.2); NEUT % 89.3 % (42.8-82.8); PLATELET COUNT 215 K/MM3 (134-434); RBC 5.01 M/mm3 (4.00-5.60); RDW 13.9 % (11.9-15.9); WHITE BLOOD COUNT 13.7 K/mm3 (4.0-10.0)
[2019-11-29] MEDS: AZITHROMYCIN IVPB 250 MG in DEXTROSE 5%-WATER - 250 ML IVPB SCH (09:33)
[2019-11-29] MEDS: METHYL SALICYLATE/MENTHOL OINT 30 GM TUBE TP SCH (09:33)
[2019-11-29 09:41] LABS: CALCIUM 8.7 mg/dL (8.5-10.1); CREATININE 1.2 mg/dL (0.55-1.3); MAGNESIUM 2.3 mg/dL (1.8-2.4); POTASSIUM 4.7 mmol/L (3.5-5.1)
[2019-11-29] MEDS ORDERED: oxyCODONE HCL 5 MG TABLET PO ONE (09:45)
[2019-11-29] MEDS ORDERED: predniSONE 20 MG TABLET (UD) PO SCH (10:00)
[2019-11-29 15:19] VITALS: BP 108/70; PULSE 82; TEMP 98
--- NOTE | 2019-11-29 18:07 | DS ---
Physical Exam: SUBJECTIVE: Patient seen and examined at the bedside. Patient stated that he felt better but continued to have some shortness of breath and a dry cough. Stated that his leg pain was improving and strength was improving as well. Endorsed good appetite. Denied cp, abd pain, n/v/c/d, fever, chills, headaches, dizziness, lightheadedness, visual changes. OBJECTIVE: Vital Signs Period Temp Pulse Resp BP Sys/[place] Pulse Ox Last 24 Hr 97.8 F-98.4 F 75-99 20-20 108-146/54-95 97-98 PHYSICAL EXAM GENERAL: The patient is awake, alert, and fully oriented, in mild acute distress. HEAD: Normal with no signs of trauma. EYES: PERRL, extraocular movements intact. ENT: Oropharynx clear without exudates, moist mucous membranes. LUNGS: Mild expiratory wheezes, decreased breath sounds, coarse breath sounds, no crackles noted, no accessory muscle use. HEART: Regular rate and rhythm, S1, S2 without murmur, rub. ABDOMEN: Soft, nontender, nondistended, normoactive bowel sounds, no guarding, no rebound, no masses. EXTREMITIES: 2+ pulses, warm, well-perfused, no edema. NEUROLOGICAL: Cranial nerves II through XII grossly intact. 4/5 R upper extremity proximally. 2/5 muscle strength on the RLE proximally, 5/5 distally. All other extremities 5/5 muscle strength. Decreased sensation to gross touch on the R lower extremity distally. PSYCH: Normal mood, normal affect. SKIN: Warm, dry, normal turgor, no rashes or lesions noted. LABS Laboratory Results - last 24 hr 11/28/19 11/29/19 11/29/19 07:35 07:50 07:50 WBC 13.7 H RBC 5.01 Hgb 13.2 Hct 40.5 MCV 80.8 MCH 26.4 MCHC 32.6 RDW 13.9 Plt Count 215 MPV 7.9 Absolute Neuts (auto) 12.3 H Neutrophils % 89.3 H Lymphocytes % 5.3 L Monocytes % 5.3 Eosinophils % 0.0 Basophils % 0.1 Nucleated RBC % 0 Sodium 137 Potassium 4.7 Chloride 105 Carbon Dioxide 25 Anion Gap 7 L BUN 25.0 H Creatinine 1.2 Est GFR (CKD-EPI)AfAm 70.58 Est GFR (CKD-EPI)NonAf 60.90 Random Glucose 118 H Calcium 8.7 Magnesium 2.3 Iron 112 TIBC 251 Iron Saturation 44 H Unsaturated IBC 139 L HOSPITAL COURSE: Marly Simons is a 69 year old man with a past medical history of COPD, HTN, BPH, Lumbar herniated disks with Sciatica admitted for COPD exacerbation and worsening sciatic/back pain. He was started on steroids, azithromycin, and inhalers. Patient completed inpatient antibiotics, will complete steroid course outpatient, will have inhalers outpatient, and will restart symbicort when he completes steroid course. Patient will require PFTs outpatient. On CT scan of the chest, patient was noted to have a pulmonary nodule and will require a [address] and follow up with outpatient pulmonogy. Patient had chronic back pain and had a lumbar MRI which showed numerous findings notably L2-L3. Facet joint arthropathy. Mild degenerative retrolisthesis of L2 on L3 is suggested. Circumferential disc bulge extending beyond the contour adjacent endplates in all directions. No compression of L2 nerves traversing through the neural foramina. There is remodeling of the superior posterior corner of L3 sequela of chronic degenerative discogenic disease. Right subarticular, right lateral recess extruded disc causing stenosis of the right lateral recess of L3 effacing the epidural fat deforming the thecal sac compressing right L3 nerve within the right lateral recess of L3. L4-L5. Hypertrophic facet joint arthropathy with thickened ligamentum flavum. Grade 1 degenerative anterior spondylolisthesis of L4 on L5 (6mm). Exposed posterior annulus within the right neural foramen contacting the right L4 nerve. Patient was seen by neurosurgery and is likely a good candidate for surgical intervention but will require optimization of his pulmonary status. Was prescribed medications for pain control including acetaminophen, ibuprofen, gabapentin, flexeril, lidocaine patch. Was advised to follow up with neurosurgery outpatient. For pain control, patient was advised to follow up with pain management outpatient. Had arterial duplex performed which noted biphasic flow in the optimal right and left OIL WINTERIZER suggestive of mild to moderate infrapopliteal disease. Patient was advised to follow up with vascular surgery outpatient. Patient was seen by physical therapy and was able to ambulate 80 feet with a walker. Walker was sent to the patient's house for ambulation assistance. Was advised of the plan and to complete prednisone for 2 more days, spiriva, ventolin inhaler, gabapentin, ibuprofen, acetaminophen, flexeril, lidocaine patch, ropinirole, pantoprazole, and to follow up with his PCP, neurosurgeon, consulting software engineer, pain management, vascular surgeon. Patient was in agreement with the plan and reiterated it. Patient was discharged in stable medical condition. Date of Admission:11/26/19 Date of Discharge: 11/29/19 Minutes to complete discharge: 35 Discharge Summary Problems reviewed: Yes Reason For Visit: SOB, ABD PAIN, CHEST PAIN Condition: Stable - Instructions Diet, Activity, Other Instructions: You were admitted for worsening of your COPD. You were treated with steroid medications, antibiotics, and inhalers. You will complete steroid medications when you leave the hospital. You had an MRI scan of your back which showed you had some compression of the nerves in your back. You were seen by a neurosurgeon for your back pain and they recommended to start you on pain medications and be evaluated for surgery of the back at a later time when your lung status is more stable. You are advised to follow up with neurosurgeon in the outpatient clinic. MEDICATIONS DO NOT take your Symbicort until you complete your course of prednisone. You may restart your Symbicort on 12/02/19. START taking prednisone 40mg (2 20mg tablets) daily for 2 more days. You last dose will be on 12/01/19 START taking albuterol inhaler 1-2 puffs every 4 hours as needed if you are short of breath. START taking Spiriva inhaler 2 puffs once daily. START taking gabapentin 300mg three times a day. START taking acetaminophen 1000mg every 6 hours only as needed for pain. START taking ibuprofen 400mg every 6 hours only as needed for pain. START taking pantoprazole 40mg daily. START taking ropinirole 0.25mg every night. If you begin to experience symptoms of hallucinations, confusion, dizziness, new rashes and itchiness, please stop this medication and see your doctor. REFERRALS Please follow up with your primary care doctor, Dr. Moe Peraza, within 1 week. Please follow up with the neurosurgeon, Dr. Andrés To, within 1 week. Please follow up with the consulting software engineer, Dr. Elias Rivera, within 1 week. Please follow up with the pain management doctor, Dr. Pavel Samuel, within 1 week. Please follow up with the vascular surgeon, Dr. Max Lynn, within 1 week. SPECIAL INSTRUCTIONS You were found to have a lung nodule on a CT scan. Please follow up the consulting software engineer (lung doctor) for this finding. You will need to get a CT scan of the chest in 3 months. You had a scan of your legs which showed some arteries had some abormal flow. You ere advised to follow up with a vascular surgeon. If you have any symptoms of complete inability to walk, falls with hitting your head, shortness of breath, chest pain, increased cough, fevers, or any other general feelings of unwellness, please call 911 or go your nearest emergency room. Referrals: Elias Rivera MD [Staff Physician] - 2 Weeks Moe Peraza [Primary Care Provider] - 1 Week Andrés To MD [Staff Physician] - 1 Week Max Lynn DO [Staff Physician] - 1 Week Pavel Samuel MD [Staff Physician] - 1 Week Disposition: HOME - Home Medications Comprehensive Discharge Medication List: Ambulatory Orders Amlodipine Besylate 10 mg PO HS 11/26/19 Budesonide/Formeterol Fumarate [SYMBICORT 160/4.5mcg -] 1 inh PO BID 11/26/19 Acetaminophen [Tylenol -] 1,000 mg PO Q6H PRN #120 tablet 11/29/19 Albuterol Sulfate Inhaler - [Ventolin HFA Inhaler -] 1 - 2 inh PO Q4H PRN #1 inhaler 11/29/19 Cyclobenzaprine HCl [Flexeril -] 10 mg PO BID #20 tablet 11/29/19 Gabapentin [Neurontin -] 300 mg PO TID #90 capsule 11/29/19 Ibuprofen 400 mg PO Q6H PRN #60 tablet 11/29/19 Lidocaine 5% Patch [Lidoderm -] 1 patch TP DAILY #7 patch 11/29/19 Pantoprazole Sodium 40 mg PO DAILY #30 tablet. 11/29/19 Ropinirole HCl [Requip -] 0.25 mg PO HS #30 tablet 11/29/19 Tiotropium [place] [Spiriva Respimat] 2 puff IH DAILY #1 inhaler 11/29/19 predniSONE [Deltasone -] 20 mg PO UTDICT #4 tablet 11/29/19 Problem List - Problems (1) Lumbar nerve root compression Code(s): M54.16 - RADICULOPATHY, LUMBAR REGION (2) COPD exacerbation Code(s): J44.1 - CHRONIC OBSTRUCTIVE PULMONARY DISEASE W (ACUTE) EXACERBATION (3) Chest pain Code(s): R07.9 - CHEST PAIN, UNSPECIFIED Qualifiers: Chest pain type: unspecified Qualified Code(s): R07.9 - Chest pain, unspecified This patient is new to me today: No Emergency Visit: Yes ED Registration Date: 11/26/19 Care time: The patient presented to the Emergency Department on the above date and was hospitalized for further evaluation of their emergent condition. Critical Care patient: No - Discharge Referral [facility]erred to [facility] Med [facility].C[facility] Yes Physician Referral: Max Lynn DO ([facility])
--- NOTE | 2019-12-02 15:08 | PN ---
Teaching Attending Note Name of Resident: Milton Perdue ATTENDING PHYSICIAN STATEMENT I saw and evaluated the patient. I reviewed the resident's note and discussed the case with the resident. I agree with the resident's findings and plan as documented. Seen and examined; please see resident note for further historical information. I personally verified all [place] historical information and exam findings. Personally interpreted all imaging and diagnostics and reviewed appropriate consults. I reviewed all labs and vital signs as per resident note and EMR as documented. I agree with the above assessment and plan unless supplemented by myself in the following. 10 item review of systems completed and is negative aside from any issues documented in the HPI VS, labs, imaging reviewed NAD, AAO, resting comfortably in bed. RRR s1/2 no mgr Normal muscle tone, moves all 5 extremities with normal apparent strength Neck is supple, trachea midline, no juvencio LN Lungs CTAB with sym expansion NT ND +BS no juvencio organomegaly CN2-12 wnl; no FND NC AT EOMI PERRLA Normal mood, appropriate behavior, euthymic affect No skin breakdown or rashes noted Overall the patient presented with the aforementioned anatomical potential neurosurgical issue involving degenerative disc disease with facet arthropathy disc bulging and hypertrophic changes. Dr. To did not recommend any inpatient surgical procedure secondary to the ongoing respiratory issues but stated that the patient could follow-up as an outpatient and be seen by pain management as an outpatient for potential epidural steroid injection. The patient has no progressive myelopathic symptoms and is improved in terms of this. He was placed on steroids which did help his symptoms. He is being discharged on Spiriva, Ventolin, gabapentin, ibuprofen, acetaminophen, Flexeril, lidocaine patch, ropinirole, pantoprazole. Of note is the patient states is that this injury is related to old work men's comp injury, and that the pain has been chronic and progressive, but there was no specific acute issue. This was revealed to me as he was leaving. He states that he sometimes has issues getting his medications through Workmen's Comp. Overall the patient has benefited maximum from this hospitalization and he would likely benefit from ongoing follow-up with indicated subspecialist. The patient will follow up with his outpatient provider. Agree with the discharge planning through the present team.
== END 2019-11-29 17:52 | disposition home or self-care (01) | DRG 192 ==
LOC: JER 14:56 → JERBED 20:50 → J6S 11-27 11:24
PROVIDERS: ADMIT Internal Medicine; ATTEND Internal Medicine
DX: J44.1 Chronic obstructive pulmonary disease with (acute) exacerbation (principal); J44.9 Chronic obstructive pulmonary disease, unspecified; J06.9 Acute upper respiratory infection, unspecified; I10 Essential (primary) hypertension; N40.0 Benign prostatic hyperplasia without lower urinary tract symptoms; M51.16 Intervertebral disc disorders with radiculopathy, lumbar region; M54.9 Dorsalgia, unspecified; R91.1 Solitary pulmonary nodule
CPT/HCPCS: 36415; 71046-TC-FY; 71275-TC; 72148-TC; 74176-TC; 80048; 80053; 82803; 83540; 83550; 83690; 83735; 83880; 84100; 84484; 85025; 85610; 85730; 87040; 87804; 90670; 93005; 93010; 93925-TC; 93970-TC; 94010; 94640; 94761; 97116-GP; 97162-GP; 99285-25; G0008; G0009; J0131; J7030; Q2036

== ENCOUNTER 2020-07-19 15:06 | Inpatient (IN) | payer OTHER ==
--- NOTE | 2020-07-19 15:55 | PDOC ---
History of Present Illness <Elenita Morales - Last Filed: 07/19/20 20:18> - History of Present Illness Initial Comments: HPI 69 yo M PMH asthma, COPD, HTN presents with 1 week hx of SOB and dry cough and new onset rash today. Reports nonproductive cough and pleuritic chest pain that began on right side, and is now bilateral. Reports associated weakness and dyspnea on exertion over the past 2-3 days. states that he is unable to sleep flat, uses 2-3 pillows. Reports diffuse, non-pruritic rash when he awoke this am. Reports associated gradual onset of headache, worse with coughing, self-resolving; denies current headache. 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 On previous admission, was found to have a pulmonary nodule. According to pt, nodule was not seen on most recent xray. PCP: Karmen Pulm: did not know spelling of name PMH: HTN, COPD, asthma PSH: see chart Meds: see chart Allergies: penicillin, sulfa (hives) Social: denies tobacco use, reports 1 nip ETOH/day, uses marijuana lozenge daily (medical marijuana) Review of Systems CONSTITUTIONAL:reports generalized weakness; denies fever, chills, diaphoresis, malaise, loss of appetite HEENT:denies rhinorrhea, nasal congestion, sore throat CARDIOVASCULAR:reports chest pain; denies syncope, palpitations, irregular heart rate, lightheadedness, peripheral edema RESPIRATORY:reports nonproductive cough, shortness of breath, dyspnea with exertion, orthopnea, wheezing GASTROINTESTINAL: denies abdominal pain, nausea, vomiting, diarrhea, constipation, melena, hematochezia GENITOURINARY:denies dysuria, frequency, urgency, hematuria MUSCULOSKELETAL:reports chronic back pain HEMATOLOGIC/IMMUNOLOGIC:denies easy bleeding, easy bruising ENDOCRINE: denies unexplained weight gain, unexplained weight loss, NEUROLOGIC:reports headache, denies loss of consciousness, focal weakness or paresthesias, dizziness, unsteady gait, seizure, mental status changes, bladder or bowel incontinence SKIN:denies rash, itching, pallor PSYCHIATRIC:denies anxiety, depression, suicidal or homicidal ideation, hallucinations. Physical Exam General: awake, alert, fully oriented, in no acute distress, well developed, well nourished Head: normocephalic, atraumatic Eyes: PERRL, EOMI, anicteric sclera, conjunctiva clear ENT: Auricles normal inspection, hearing grossly normal, oropharynx clear without exudates, no nasal congestion, moist mucous membranes Neck: supple, normal ROM, no LAD, JVD or masses Lung: decreased breath sounds b/l, CTA b/l, no crackles, wheezes; speaks partial sentences Heart: RRR, normal S1, S2, no murmurs appreciated Abdomen: soft, non tender, normoactive bowel sounds, no guarding, rebound, masses Extremities: no edema, no erythema or tenderness, DP/PT pulses 2+ and symmetric, no clubbing, cyanosis Neuro: CN2-12 grossly intact, moves all extremities, normal speech, sensation intact Skin: diffuse urticarial rash noted throughout chest, and arms MDM 69 yo M PMH asthma, COPD, HTN presents with 1 week hx of SOB and dry cough and new onset rash today. Tachycardic, tachypneic, hypertensive DDx including but not limited to: COPD exacerbation, CHF, ACS, PE, allergic reaction/hives Workup: labs, cxr, ekg [place]: nebs, steroids, benadryl EKG: normal sinus rhythm, HR 97bpm, MN 142ms, QRS 78ms, Qtc 408ms, TWI in AVR CXR - no pneumothorax or pleural effusion. midline airway, appropriate vascular markings, no blunting of costophrenic angle, no cardiomegaly, as read by ED staff labs: no leukocytosis, no anemia Improved air entry on auscultation; improvement of rash on repeat exam. Pt signed out to night team, pending remaining labs <Gaviota Harper - Last Filed: 07/21/20 21:01> - General Chief Complaint: Shortness of Breath Stated Complaint: SHORTNESS OF BREATH, BODY RASH, DIARRHEA Time Seen by Provider: 07/19/20 15:53 Past History <Elenita Morales - Last Filed: 07/19/20 20:18> - Medical History Asthma: Yes COPD: Yes (bronchitis) HTN: Yes Hypercholesterolemia: Yes - Psycho-Social/Smoking History Smoking History: Never smoked Have you smoked in the past 12 months: No If you are a former smoker, when did you quit?: 30 years ago Information on smoking cessation initiated: Yes - Substance Abuse Hx (Audit-C & DAST Scrn) How often the patient has a drink containing alcohol: Never Score: In Men: 4 or > Positive; In Women: 3 or > Positive: 0 Screen Result (Pos requires Nsg. Audit-10AR): Negative In the last yr the pt used illegal drug/Rx for NonMed reason: No Score: Yes response is considered Positive: 0 Screen Result (Positive result requires Nsg. DAST-10): Negative <Gaviota Harper - Last Filed: 07/21/20 21:01> - Medical History Allergies/Adverse Reactions: Allergies Allergy/AdvReac Type Severity Reaction Status Date / Time Penicillins Allergy Severe Hives Verified 07/19/20 15:25 Sulfa (Sulfonamide Allergy Severe Hives Verified 07/19/20 15:25 Antibiotics) Home Medications: Ambulatory Orders Amlodipine Besylate 10 mg PO HS 11/26/19 Budesonide/Formeterol Fumarate [SYMBICORT 160/4.5mcg -] 2 puff IH BID 11/26/19 Acetaminophen [Tylenol -] 1,000 mg PO Q6H PRN #120 tablet 11/29/19 Albuterol Sulfate Inhaler - [Ventolin HFA Inhaler -] 1 - 2 inh PO Q4H PRN #1 inhaler 11/29/19 Fluticasone Prop 0.05% Nasal [Flonase -] 1 - 2 spray NS DAILY PRN 07/20/20 Umeclidinium [place] [Incruse Ellipta] 1 puff IH DAILY 07/20/20 *Physical Exam - Vital Signs Last Vital Signs Temp Pulse Resp BP Pulse Ox 98.3 F 92 H 20 137/91 100 07/19/20 15:21 07/19/20 18:30 07/19/20 18:30 07/19/20 18:30 07/19/20 18:30 <Elenita Morales - Last Filed: 07/19/20 20:18> - Vital Signs Last Vital Signs Temp Pulse Resp BP Pulse Ox 98.3 F 103 H 21 H 136/86 93 L 07/19/20 15:21 07/19/20 15:21 07/19/20 15:21 07/19/20 15:21 07/19/20 15:21 <Gaviota Harper - Last Filed: 07/21/20 21:01> ED Treatment Course - LABORATORY CBC & Chemistry Diagram: 07/19/20 17:50 07/19/20 17:50 - ADDITIONAL ORDERS Additional order review: Laboratory Results 07/19/20 07/19/20 17:50 17:50 PT with INR 11.90 INR 1.01 PTT (Actin FS) 29.6 Sodium 140 Potassium 4.5 Chloride 106 Carbon Dioxide 25 Anion Gap 9 BUN 17.2 Creatinine 1.4 H Est GFR (CKD-EPI)AfAm 58.58 Est GFR (CKD-EPI)NonAf 50.54 Random Glucose 93 Calcium 9.3 Total Bilirubin 0.4 AST 21 ALT 18 Alkaline Phosphatase 99 Creatine Kinase 284 Creatine Kinase Index 0.3 CK-MB (CK-2) 1.1 Troponin I < 0.02 B-Natriuretic Peptide 107.2 Total Protein 7.8 Albumin 4.3 07/19/20 17:50 RBC 5.75 H MCV 81.6 MCHC 32.5 RDW 13.6 MPV 7.7 Neutrophils % 79.1 Lymphocytes % 11.0 D Monocytes % 8.3 Eosinophils % 1.1 D Basophils % 0.5 D - RADIOLOGY Radiology Studies Ordered: Category Date Time Status CHEST CTA [CT] Stat CT Scan 07/19/20 19:40 Ordered - Medications Given in the ED: ED Medications Discontinued Medications Generic Name Dose Route Start Last Admin Trade Name Freq PRN Reason Stop Dose Admin Albuterol/Ipratropium 1 amp 07/19/20 17:45 07/19/20 18:53 Duoneb - NEB 07/19/20 18:31 1 amp Q15M FRANCISCO Administration Diphenhydramine HCl 25 mg 07/19/20 17:38 07/19/20 18:23 Benadryl Injection - IVPB 07/19/20 17:39 25 mg ONCE ONE Administration Methylprednisolone Sodium Succinate 125 mg 07/19/20 17:36 07/19/20 17:45 Solu-Medrol - IVPUSH 07/19/20 17:37 125 mg ONCE ONE Administration <Elenita Morales - Last Filed: 07/19/20 20:18> - LABORATORY CBC & Chemistry Diagram: 07/21/20 10:06 08/31/20 10:06 <Gaviota Harper - Last Filed: 07/21/20 21:01> Discharge <Elenita Morales - Last Filed: 07/19/20 20:18> - Discharge Information Problems reviewed: Yes - Admission Yes <Gaviota Harper - Last Filed: 07/21/20 21:01> - Discharge Information Clinical Impression/Diagnosis: SOB (shortness of breath) Condition: Stable
[2020-07-19] MEDS ORDERED: methylPREDNISolone NA SUCC 125 MG/2 ML VIAL IVPUSH ONE (17:36)
[2020-07-19] MEDS ORDERED: ALBUTEROL SO4 2.5/IPRATROPIUM 0.5 INH SOL 3 ML VIAL.NEB. NEB ONE ×2 (17:39→18:51)
[2020-07-19] MEDS ORDERED: methylPREDNISolone NA SUCC 125 MG/2 ML VIAL ONE (17:40)
[2020-07-19] MEDS: ALBUTEROL SO4 2.5/IPRATROPIUM 0.5 INH SOL 3 ML VIAL.NEB. NEB SCH ×4 (17:40→18:53)
[2020-07-19 18:01] LABS: BASO % 0.5 % (0-2.0); EOS % 1.1 % (0-4.5); HEMOGLOBIN 15.3 GM/dL (11.7-16.9); MCH 26.5 pg (25.7-33.7); MCHC 32.5 g/dl (32.0-35.9); MEAN CELL VOLUME 81.6 fl (80-96); MEAN PLT VOLUME 7.7 fl (7.5-11.1); MONO % 8.3 % (3.8-10.2); NEUT % 79.1 % (42.8-82.8); PLATELET COUNT 190 K/MM3 (134-434); RBC 5.75 M/mm3 (4.00-5.60); RDW 13.6 % (11.9-15.9)
[2020-07-19 18:14] LABS: INR 1.01 (0.83-1.09); PROTHROMBIN TIME (PATIENT) 11.9 SEC (9.7-13.0)
[2020-07-19 18:16] LABS: ACTIVATED PTT 29.6 SECONDS (25.2-36.5)
[2020-07-19 18:37] LABS: ALBUMIN 4.3 g/dl (3.4-5.0); ALK PHOS 99 U/L (45-117); ANION GAP 9 MMOL/L (8-16); BILIRUBIN,TOTAL 0.4 mg/dL (0.2-1); BLOOD UREA NITROGEN 17.2 mg/dL (7-18); CALCIUM 9.3 mg/dL (8.5-10.1); CHLORIDE 106 mmol/L (98-107); CO2 25 mmol/L (21-32); CREATININE 1.4 mg/dL (0.55-1.3); GLUCOSE,RANDOM 93 mg/dL (74-106); POTASSIUM 4.5 mmol/L (3.5-5.1); SGOT/AST 21 U/L (15-37); SGPT/ALT 18 U/L (13-61); SODIUM 140 mmol/L (136-145); TOT PROT 7.8 g/dl (6.4-8.2)
[2020-07-19 18:45] LABS: N-TERMINAL BNP 107.2 pg/ml (5-125)
--- NOTE | 2020-07-19 19:28 | PDOC ---
*Physical Exam - Vital Signs Last Vital Signs Temp Pulse Resp BP Pulse Ox 98.3 F 92 H 20 137/91 100 07/19/20 15:21 07/19/20 18:30 07/19/20 18:30 07/19/20 18:30 07/19/20 18:30 ED Treatment Course - LABORATORY CBC & Chemistry Diagram: 07/19/20 17:50 07/19/20 17:50 - ADDITIONAL ORDERS Additional order review: Laboratory Results 07/19/20 07/19/20 17:50 17:50 PT with INR 11.90 INR 1.01 PTT (Actin FS) 29.6 Sodium 140 Potassium 4.5 Chloride 106 Carbon Dioxide 25 Anion Gap 9 BUN 17.2 Creatinine 1.4 H Est GFR (CKD-EPI)AfAm 58.58 Est GFR (CKD-EPI)NonAf 50.54 Random Glucose 93 Calcium 9.3 Total Bilirubin 0.4 AST 21 ALT 18 Alkaline Phosphatase 99 Creatine Kinase 284 Troponin I < 0.02 B-Natriuretic Peptide 107.2 Total Protein 7.8 Albumin 4.3 07/19/20 17:50 RBC 5.75 H MCV 81.6 MCHC 32.5 RDW 13.6 MPV 7.7 Neutrophils % 79.1 Lymphocytes % 11.0 D Monocytes % 8.3 Eosinophils % 1.1 D Basophils % 0.5 D - Medications Given in the ED: ED Medications Discontinued Medications Generic Name Dose Route Start Last Admin Trade Name Connerq PRN Reason Stop Dose Admin Albuterol/Ipratropium 1 amp 07/19/20 17:45 07/19/20 18:53 Duoneb - NEB 07/19/20 18:31 1 amp Q15M FRANCIS[place] Administration Diphenhydramine HCl 25 mg 07/19/20 17:38 07/19/20 18:23 Benadryl Injection - IVPB 07/19/20 17:39 25 mg ONCE ONE Administration Methylprednisolone Sodium Succinate 125 mg 07/19/20 17:36 07/19/20 17:45 Solu-Medrol - IVPUSH 07/19/20 17:37 125 mg ONCE ONE Administration Medical Decision Making - Medical Decision Making 07/19/20 19:27 69 y/o M hx of asthma, copd, htn presenting with sob, chest pressure and new onset rash. pt improved after duonebs treatment will get second troponin. 07/19/20 19:30 Discharge - Follow up/Referral Referrals: Moe Peraza [Primary Care Provider] - - Patient Discharge Instructions - Post Discharge Activity
--- NOTE | 2020-07-19 20:28 | PN ---
Teaching Attending Note Name of Resident: Lavinia Casas ATTENDING PHYSICIAN STATEMENT I saw and evaluated the patient. I reviewed the resident's note and discussed the case with the resident. I agree with the resident's findings and plan as documented. SUBJECTIVE: Patient is a 69 year old man with a PMH of Penicillin/Sulfa allergy, Marijuana u se (?lozenges), Remote IVDU (Cocaine, Heroin), Remote hepatitis C disease, HTN, Lumbar herniated disks, COPD (not on home O2) and Sciatica who presents to the ER with one week of chest pain and a nonproductive cough. As per patient, his symptoms were first localized on the right side, but now presents with bilateral chest pain. Has associated shortness of breath, worsened with exertion and general weakness. Patient states he noticed a diffuse non-itchy rash in both antecubital fossae this morning. states that he is unable to sleep flat, uses 2-3 pillows. Patient denies abdominal pain, leg edema, headache, palpitations, dizziness, fever, chills, nausea, vomiting, diarrhea, constipation, dysuria, frequency, urgency, melena, hematochezia or hematuria. Former heavy smoker (1-2 PPD for over 30 years). Denies alcohol, tobacco or illicit drug use. No sick contacts or recent travels. Family history of CVA and [place] in mother and thyroid cancer in sister. OBJECTIVE: Alert Vital Signs Period Temp Pulse Resp BP Sys/S[place]illa Pulse Ox Last 24 Hr 98.3 F 92-103 20-21 136-137/86-91 93-100 HEENT: No Jaundice, eye redness or discharge, PERRLA, EOMI. Normocephalic, atraumatic. External ears are normal and hearing is grossly intact. No nasal discharge. Neck: Supple, nontender. No palpable adenopathy or thyromegaly. No JVD Chest: Good effort. Expiratory wheezing; prolonged expiration. Clear to percussion. Heart: Regular. No S3, rub or murmur Abdomen: Not distended, soft, nontender and no HSM. No rebound or guarding. Normal bowel sounds. Ext: Peripheral pulses intact. No leg edema. Rash in the antecubital fossae. Skin: Warm and dry. No petechiae, rash or ecchymosis. Neuro: Alert. Oriented x3. CN 2-12 grossly intact. Sensation grossly intact in a ll four extremities and DTR are symmetric. Psych: Appropriate mood and affect. Good insight. Home Medications Medication Instructions Recorded Amlodipine Besylate 10 mg PO HS 11/26/19 Budesonide/Formeterol Fumarate 1 inh PO BID 11/26/19 [SYMBICORT 160/4.5mcg -] Acetaminophen [Tylenol -] 1,000 mg PO Q6H PRN #120 tablet 11/29/19 Albuterol Sulfate Inhaler - 1 - 2 inh PO Q4H PRN #1 inhaler 11/29/19 [Ventolin HFA Inhaler -] Cyclobenzaprine HCl [Flexeril -] 10 mg PO BID #20 tablet 11/29/19 Gabapentin [Neurontin -] 300 mg PO TID #90 capsule 11/29/19 Ibuprofen 400 mg PO Q6H PRN #60 tablet 11/29/19 Lidocaine 5% Patch [Lidoderm -] 1 patch TP DAILY #7 patch 11/29/19 Pantoprazole Sodium 40 mg PO DAILY #30 tablet. 11/29/19 Ropinirole HCl [Requip -] 0.25 mg PO HS #30 tablet 11/29/19 Tiotropium [place] [Spiriva 2 puff IH DAILY #1 inhaler 11/29/19 Respimat] Abnormal Lab Results 07/19/20 07/19/20 17:50 17:50 RBC 5.75 H Creatinine 1.4 H Current Medications Generic Name Dose Route Start Last Admin Trade Name Freq PRN Reason Stop Dose Admin Albuterol Sulfate 1 puff 07/20/20 08:00 Ventolin Hfa Inhaler - IH RQID FRANCISCO Albuterol/Ipratropium 1 amp 07/20/20 08:00 Duoneb - NEB RQID FRANCISCO Budesonide/Formoterol Fumarate 2 puff 07/19/20 22:00 Symbicort 160/4.5mcg - IH BID [facility] Heparin Sodium (Porcine) 5,000 unit 07/19/20 22:00 Heparin - SQ TID [facility] Azithromycin 500 mg in 250 mls @ 250 mls/hr 07/19/20 22:00 Zithromax 500mg Ivpb (Pre-Docked) IVPB DAILY [facility] Methylprednisolone Sodium Succinate 20 mg 07/20/20 02:00 Solu-Medrol - IVPUSH Q8H-IV FRANCISCO ASSESSMENT AND PLAN: 1. ACS/COPD exacerbation - Chest pain is atypical. EKG shows NSR at 76/minute and QTc [address]-T wave changes. Initial troponin is negative. CXR shows elevation of right hemidiaphragm, but no acute abnormality. CTA chest/thorax is pending. Etiology of rash is unclear. Got Benadryl and Solumedrol in the ER. Will admit to telemetry, trend troponin, repeat EKG, get ECHO, TSH and consult Cardiology/Pulmonary. Will treat with Duoneb, Solumedrol 40 mg q 8 hours, Symbicort and Azithromycin 500 mg IV QD and monitor peak flow. Viral testing for COVID-19 ordered and patient placed on airborne, droplet and contact isolation. Started on supplemental oxygen via nasal cannula. Will continue comprehensive care for all of patients comorbid conditions. 2. ZORAIDA Cause unclear. Will get urinalysis, kidney sonogram, hydrate gently, monitor urine output and consult Nephrology. Avoid nephrotoxic agents such as NSAIDS, aminoglycosides, contrast dyes and certain Alternative medicine products. 3. DVT prophylaxis - Heparin 5000u sq tid. 4. Advance directives - Full code
--- NOTE | 2020-07-19 22:06 | PDOC ---
Documentation entered by Jammie Hughes SCRIBE, acting as scribe for Regulo Walker MD. Regulo Walker MD: This documentation has been prepared by the vanessaeSaul Sydney, SCRIBE, under my direction and personally reviewed by me in its entirety. I confirm that the documentation accurately reflects all work, treatment, procedures, and medical decision making performed by me. Attending Attestation - Resident Resident Name: Gaviota Harper - ED Attending Attestation I have performed the following: I have examined & evaluated the patient, The case was reviewed & discussed with the resident, I agree w/resident's findings & plan, Exceptions are as noted - HPI HPI: 07/19/20 18:01 Patient is a 69 year old male with a significant past medical history of asthma, COPD, HTN who presents to the ED with one week of chest pain and a nonproductive cough. As per patient, his symptoms were first localized on the right side, but now presents with bilateral chest pain. He also endorses shortness of breath, worsened with exertion and general weakness. Patient states he noticed a non- itchy rash this morning. Denies headache, fever, chills, chest pain, nausea, vomiting, diarrhea, or constipation. Denies dizziness, focal weakness/numbness Allergies: Penicillins, Sulfa PCP: Dr. Peraza - Physicial Exam PE: 07/19/20 21:32 GENERAL: Awake, alert, and fully oriented, in no acute distress EYES: PERRLA, EOMI, sclera anicteric, conjunctiva clear ENT: oropharynx clear without exudates. Moist mucosa NECK: Normal ROM, supple, no lymphadenopathy, JVD, or masses LUNGS: Breath sounds equal, slightly diminished BS bilaterally. +b/l wheezing , and no crackles HEART: Regular rate and rhythm, normal S1 and S2, no murmurs, rubs or gallops ABDOMEN: Soft, nontender, normoactive bowel sounds. No guarding, no rebound. No masses EXTREMITIES: Normal range of motion, no edema. No clubbing or cyanosis. No cords, erythema, or tenderness NEUROLOGICAL: Normal speech, cranial nerves intact, equal strength and sensation b/l SKIN: erythematous raised wheals on chest, back and arms b/l - Medical Decision Making 07/19/20 19:02 69yo M presents to the ED with chest pressure, SOB, and rash With regards to CP, SOB, ddx includes COPD vs ACS vs PE vs PNA Plan for labs, CXR, nebs, steroids, possible CTA Rash consistent with urticaria which pt states he gets from time to time with unknown trigger. No new meds, detergents, exposures today. Will treat with benadryl, reassess 07/19/20 21:06 Labs unremarkable CXR clear pt reports improvement in SOB but persistent chest pressure Plan for CTA, admission Discharge - Discharge Information Problems reviewed: Yes Clinical Impression/Diagnosis: SOB (shortness of breath) - Follow up/Referral - Patient Discharge Instructions - Post Discharge Activity
--- NOTE | 2020-07-19 23:40 | HP ---
CHIEF COMPLAINT: SOB and dry cough PCP: HISTORY OF PRESENT ILLNESS: 69 Y M with a PMH of COPD(not on home O2), HTN, BPH, Hepc (s/p treatment), previous IVDU (cocaine, heroin), presents with 2 weeks of worsening SOB and nonproductive cough. Patient reports that he was previously admitted to [facility] on November for similar presentation, treated with antibiotics and steroid. During his stay, CT chest found solitary lung nodule, which he saw outpt pulmonary. Patient reports that again in april he experience a similar episode with SOB and cough, he consulted his pulmonary via a tele medicine interview, he was treated with antibiotics and steroids. He reports improvement after his treatments with each episode. Reports a chest pain, associated with cough, which started on his right side and has progressed across to the left. Worsened with cough, reports it as a superficial muscular chest pain. Denies any fever, chills, nausea, vomiting, abdominal pain, palpitation, chest pain at rest/exertion, headache, dizziness, LOC, or changes in his bowel/ urinary habits Patient was a former smoker, stopped more than 20 years ago, smoked for >30 years on and off, 1-2 ppd, current alcohol user, 1 glass/d per 7days/week. previous IVDU, lastuse more than 40 years ago. ER course was notable for: (1) P 103, O2 sat 93% (2) CXR no acute infiltrations noted (3)76/minute and QTc [address]-T wave changes Recent Travel: Denies PAST MEDICAL HISTORY: As in HPI PAST SURGICAL HISTORY: As in HPI Social History: As in HPI Smoking: Alcohol: Drugs: Allergies Penicillins Allergy (Severe, Verified 07/19/20 15:25) Hives Sulfa (Sulfonamide Antibiotics) Allergy (Severe, Verified 07/19/20 15:25) Hives HOME MEDICATIONS: Home Medications Medication Instructions Recorded Amlodipine Besylate 10 mg PO HS 11/26/19 Budesonide/Formeterol Fumarate 1 inh PO BID 11/26/19 [SYMBICORT 160/4.5mcg -] Acetaminophen [Tylenol -] 1,000 mg PO Q6H PRN #120 tablet 11/29/19 Albuterol Sulfate Inhaler - 1 - 2 inh PO Q4H PRN #1 inhaler 11/29/19 [Ventolin HFA Inhaler -] Cyclobenzaprine HCl [Flexeril -] 10 mg PO BID #20 tablet 11/29/19 Gabapentin [Neurontin -] 300 mg PO TID #90 capsule 11/29/19 Ibuprofen 400 mg PO Q6H PRN #60 tablet 11/29/19 Lidocaine 5% Patch [Lidoderm -] 1 patch TP DAILY #7 patch 11/29/19 Pantoprazole Sodium 40 mg PO DAILY #30 tablet. 11/29/19 Ropinirole HCl [Requip -] 0.25 mg PO HS #30 tablet 11/29/19 Tiotropium [place] [Spiriva 2 puff IH DAILY #1 inhaler 11/29/19 Respimat] REVIEW OF SYSTEMS CONSTITUTIONAL: Absent: fever, chills, diaphoresis, generalized weakness, malaise, loss of appetite, weight change HEENT: Absent: rhinorrhea, nasal congestion, throat pain, throat swelling, difficulty swallowing, visual changes CARDIOVASCULAR: Absent: chest pain, syncope, palpitations, irregular heart rate, lightheadedness, peripheral edema RESPIRATORY: Present: cough, shortness of breath Absent: dyspnea with exertion, orthopnea, wheezing, stridor, hemoptysis GASTROINTESTINAL: Absent: abdominal pain, abdominal distension, nausea, vomiting, diarrhea, constipation, melena, hematochezia GENITOURINARY: Absent: dysuria, frequency, urgency, hesitancy, hematuria, flank pain, MUSCULOSKELETAL: Absent: myalgia, arthralgia, joint swelling, back pain, neck pain SKIN: Positive: 1 day of rash in b/l antecubital fossa radiating to thorax Absent: itching, pallor NEUROLOGIC: Absent: headache, focal weakness or paresthesias, dizziness, unsteady gait, seizure, mental status changes, bladder or bowel incontinence PHYSICAL EXAMINATION Vital Signs - 24 hr 07/19/20 07/19/20 07/19/20 15:21 16:27 18:30 Temperature 98.3 F Pulse Rate 103 H 94 H Pulse Rate [ 92 H Apical] Respiratory 21 H 20 Rate Blood Pressure 136/86 Blood Pressure 137/91 [Right Arm] O2 Sat by Pulse 93 L 95 100 Oximetry (%) GENERAL: Awake, alert, and fully oriented, in no acute distress. HEAD: Normal with no signs of trauma. EYES: Pupils equal, round and reactive to light, extraocular movements intact, sclera anicteric, conjunctiva clear. EARS, NOSE, THROAT: Ears normal, nares patent, oropharynx clear without exudates. Moist mucous membranes. NECK: Normal range of motion, supple without lymphadenopathy, JVD, or masses. LUNGS: Breath sounds equal, clear to auscultation bilaterally. B/L upper lung field expiraoty wheezes, and no crackles. No accessory muscle use. HEART: Regular rate and rhythm, normal S1 and S2 without murmur, rub or gallop. ABDOMEN: Soft, nontender, not distended, normoactive bowel sounds, no guarding, no rebound, no masses. MUSCULOSKELETAL: Normal range of motion at all joints. No bony deformities or tenderness. No CVA tenderness. UPPER EXTREMITIES: 2+ pulses, warm, well-perfused. No cyanosis. No clubbing. No peripheral edema. LOWER EXTREMITIES: 2+ pulses, warm, well-perfused. No calf tenderness. No peripheral edema. NEUROLOGICAL: Cranial nerves II-XII intact. Normal speech. Normal gait. PSYCHIATRIC: Cooperative. Good eye contact. Appropriate mood and affect. SKIN: Warm, dry, normal turgor, no rashes or lesions noted, normal capillary refill. Laboratory Results - last 24 hr 07/19/20 07/19/20 07/19/20 17:50 17:50 17:50 WBC 10.0 RBC 5.75 H Hgb 15.3 Hct 47.0 D MCV 81.6 MCH 26.5 MCHC 32.5 RDW 13.6 Plt Count 190 MPV 7.7 Absolute Neuts (auto) 7.9 Neutrophils % 79.1 Lymphocytes % 11.0 D Monocytes % 8.3 Eosinophils % 1.1 D Basophils % 0.5 D Nucleated RBC % 0 PT with INR 11.90 INR 1.01 PTT (Actin FS) 29.6 Sodium 140 Potassium 4.5 Chloride 106 Carbon Dioxide 25 Anion Gap 9 BUN 17.2 Creatinine 1.4 H Est GFR (CKD-EPI)AfAm 58.58 Est GFR (CKD-EPI)NonAf 50.54 Random Glucose 93 Calcium 9.3 Total Bilirubin 0.4 AST 21 ALT 18 Alkaline Phosphatase 99 Creatine Kinase 284 Creatine Kinase Index 0.3 CK-MB (CK-2) 1.1 Troponin I < 0.02 B-Natriuretic Peptide 107.2 Total Protein 7.8 Albumin 4.3 07/19/20 20:20 WBC RBC Hgb Hct MCV MCH MCHC RDW Plt Count MPV Absolute Neuts (auto) Neutrophils % Lymphocytes % Monocytes % Eosinophils % Basophils % Nucleated RBC % PT with INR INR PTT (Actin FS) Sodium Potassium Chloride Carbon Dioxide Anion Gap BUN Creatinine Est GFR (CKD-EPI)AfAm Est GFR (CKD-EPI)NonAf Random Glucose Calcium Total Bilirubin AST ALT Alkaline Phosphatase Creatine Kinase Creatine Kinase Index CK-MB (CK-2) Troponin I 0.03 B-Natriuretic Peptide Total Protein Albumin ASSESSMENT/PLAN: 69 Y M with a PMH of COPD(not on home O2), HTN, BPH, Hepc (s/p treatment), previous IVDU (cocaine, heroin), presents with 2 weeks of worsening SOB and nonproductive cough, admitted for COPD exacerbation, ACS r/o #COPD exacerbation vs ACS r/o - Most likely COPD exacerbation, but due patients risk factors, we will work him up for ACS r/o - Atypical chest pain, describes it as superficial and exacerbated with cough - No ST- T wave changes noted in EKG - Trop x 2 negative - f/u repeat EKG - f/u ECHO - consulted Pulmonary, pending recs - contune with duoneb, solumedrol, abd Symbicort - Started emperic antibiotics coverage with Azithromycin - Pending Covid #ZORAIDA - Unclear etiology, patient reports that he did not drink any water today, possibly due to dehydration - f/u Ua - f/u Renal/Kidney u/s - Continue IV fluids - Consulted nephro, pending recs - avoid nephrotoxic drugs #FEN - N/S @ 75 mls/hr - Conitnue to monitor electrolytes - Sodium controlled diet #DVT PPX - Heparin SQ Family Medical History Family History: As Documented Visit type - Medication Review Med list reviewed for High Risk Meds patients 65 and older: Yes - Emergency Visit Emergency Visit: Yes ED Registration Date: 07/19/20 Care time: The patient presented to the Emergency Department on the above date and was hospitalized for further evaluation of their emergent condition. - New Patient This patient is new to me today: No - Critical Care Critical Care patient: No ATTENDING PHYSICIAN STATEMENT I saw and evaluated the patient. I reviewed the resident's note and discussed the case with the resident. I agree with the resident's findings and plan as documented. SUBJECTIVE: OBJECTIVE: ASSESSMENT AND PLAN:
[2020-07-19] MEDS ORDERED: AZITHROMYCIN IVPB 500 MG/250 ML BAG IVPB ONE (23:46)
[2020-07-19] MEDS ORDERED: HEPARIN NA (PORCINE) 5,000 UNITS/ML 1ML VIAL ONE (23:46)
[2020-07-20] MEDS: AZITHROMYCIN IVPB 500 MG/250 ML BAG IVPB SCH ×2 (00:01→09:30)
[2020-07-20] MEDS ORDERED: SODIUM CHLORIDE 1,000 ML IV SCH (00:15)
[2020-07-20] MEDS ORDERED: methylPREDNISolone NA SUCC 40 MG/1 ML VIAL ONE ×2 (02:42→09:04)
[2020-07-20] MEDS: methylPREDNISolone NA SUCC 40 MG/1 ML VIAL IVPUSH SCH ×3 (02:55→18:19)
[2020-07-20] MEDS: HEPARIN NA (PORCINE) 5,000 UNITS/ML 1ML VIAL SQ SCH ×4 (06:03→21:33)
[2020-07-20 06:53] LABS: BASO % 0.1 % (0-2.0); HEMATOCRIT 41.2 % (35.4-49); HEMOGLOBIN 13.5 GM/dL (11.7-16.9); LYMPH % 12.5 % (8-40); MCH 26.5 pg (25.7-33.7); MCHC 32.7 g/dl (32.0-35.9); MEAN PLT VOLUME 7.6 fl (7.5-11.1); MONO % 2.1 % (3.8-10.2); NEUT % 85.3 % (42.8-82.8); PLATELET COUNT 171 K/MM3 (134-434); RBC 5.08 M/mm3 (4.00-5.60); RDW 13.5 % (11.9-15.9); WHITE BLOOD COUNT 4.6 K/mm3 (4.0-10.0)
[2020-07-20 07:40] LABS: PHOSPHOROUS 2.2 mg/dL (2.5-4.9)
[2020-07-20] MEDS ORDERED: ALBUTEROL SO4 HFA INHALER IH ONE (07:54)
[2020-07-20] MEDS: ALBUTEROL SO4 HFA INHALER IH SCH ×2 (08:00→12:26)
--- NOTE | 2020-07-20 08:30 | PN ---
Teaching Attending Note Name of Resident: Elias Ramsey ATTENDING PHYSICIAN STATEMENT I saw and evaluated the patient. I reviewed the resident's note and discussed the case with the resident. I agree with the resident's findings and plan as documented. SUBJECTIVE: Patient is feeling better with NAD , feels shortness of breath without oxygen , c/o having continuous cough that his chest is hurting from it OBJECTIVE: Vital Signs Temperature 97.5 F L 07/20/20 05:35 Pulse Rate 54 L 07/20/20 05:35 Respiratory Rate 18 07/20/20 05:35 Blood Pressure 106/70 07/20/20 05:35 O2 Sat by Pulse Oximetry (%) 96 07/20/20 07:34 PE: per resident's note CBCD WBC 4.6 K/mm3 (4.0-10.0) 07/20/20 06:25 RBC 5.08 M/mm3 (4.00-5.60) 07/20/20 06:25 Hgb 13.5 GM/dL (11.7-16.9) 07/20/20 06:25 Hct 41.2 % (35.4-49) 07/20/20 06:25 MCV 81.0 fl (80-96) 07/20/20 06:25 MCHC 32.7 g/dl (32.0-35.9) 07/20/20 06:25 RDW 13.5 % (11.9-15.9) 07/20/20 06:25 Plt Count 171 K/MM3 (134-434) 07/20/20 06:25 MPV 7.6 fl (7.5-11.1) 07/20/20 06:25 CMP Sodium 140 mmol/L (136-145) 07/19/20 17:50 Potassium 4.5 mmol/L (3.5-5.1) 07/19/20 17:50 Chloride 106 mmol/L (98-107) 07/19/20 17:50 Carbon Dioxide 25 mmol/L (21-32) 07/19/20 17:50 Anion Gap 9 MMOL/L (8-16) 07/19/20 17:50 BUN 17.2 mg/dL (7-18) 07/19/20 17:50 Creatinine 1.4 mg/dL (0.55-1.3) H 07/19/20 17:50 Random Glucose 93 mg/dL (74-106) 07/19/20 17:50 Calcium 9.3 mg/dL (8.5-10.1) 07/19/20 17:50 Total Bilirubin 0.4 mg/dL (0.2-1) 07/19/20 17:50 AST 21 U/L (15-37) 07/19/20 17:50 ALT 18 U/L (13-61) 07/19/20 17:50 Alkaline Phosphatase 99 U/L (45-117) 07/19/20 17:50 Total Protein 7.8 g/dl (6.4-8.2) 07/19/20 17:50 Albumin 4.3 g/dl (3.4-5.0) 07/19/20 17:50 CARDIAC ENZYMES Creatine Kinase 284 U/L (26-308) 07/19/20 17:50 Troponin I 0.03 ng/ml (0.00-0.05) 07/19/20 20:20 Current Medications Generic Name Dose Route Start Last Admin Trade Name Cecilio PRN Reason Stop Dose Admin Albuterol Sulfate 1 puff 07/20/20 08:00 Ventolin Hfa Inhaler - IH RQID [facility] Albuterol/Ipratropium 1 amp 07/20/20 08:00 Duoneb - NEB RQID [facility] Budesonide/Formoterol Fumarate 2 puff 07/19/20 22:00 07/20/20 00:00 Symbicort 160/4.5mcg - IH 2 puff BID [facility] Administration Heparin Sodium (Porcine) 5,000 unit 07/19/20 22:00 07/20/20 06:03 Heparin - SQ Not Given TID [facility] Azithromycin 500 mg in 250 mls @ 250 mls/hr 07/19/20 22:00 07/20/20 00:01 Zithromax 500mg Ivpb (Pre-Docked) IVPB 250 mls/hr DAILY [facility] Administration Sodium Chloride 1,000 mls @ 75 mls/hr 07/20/20 00:15 07/20/20 02:55 Normal Saline - IV 75 mls/hr ASDIR [facility] Administration Methylprednisolone Sodium Succinate 20 mg 07/20/20 02:00 07/20/20 02:55 Solu-Medrol - IVPUSH 20 mg Q8H-IV [facility] Administration Home Medications Medication Instructions Recorded Amlodipine Besylate 10 mg PO HS 11/26/19 Budesonide/Formeterol Fumarate 1 inh PO BID 11/26/19 [SYMBICORT 160/4.5mcg -] Acetaminophen [Tylenol -] 1,000 mg PO Q6H PRN #120 tablet 11/29/19 Albuterol Sulfate Inhaler - 1 - 2 inh PO Q4H PRN #1 inhaler 11/29/19 [Ventolin HFA Inhaler -] Cyclobenzaprine HCl [Flexeril -] 10 mg PO BID #20 tablet 11/29/19 Gabapentin [Neurontin -] 300 mg PO TID #90 capsule 11/29/19 Ibuprofen 400 mg PO Q6H PRN #60 tablet 11/29/19 Lidocaine 5% Patch [Lidoderm -] 1 patch TP DAILY #7 patch 11/29/19 Pantoprazole Sodium 40 mg PO DAILY #30 tablet. 11/29/19 Ropinirole HCl [Requip -] 0.25 mg PO HS #30 tablet 11/29/19 Tiotropium [place] [Spiriva 2 puff IH DAILY #1 inhaler 11/29/19 Respimat] CXR: no acute pathology CTA: No PE ASSESSMENT AND PLAN: This patient is a 69yom with Pmhx of COPD(not on home O2), HTN, BPH, Hepc (s/p treatment), previous IVDU (cocaine, heroin), presents with 2 weeks of worsening SOB and nonproductive cough. # Acute exacerbation of COPD: CTA is no PE, will get covid markers, LDH,ferritin, ddimer,crp,ferriting ordered. 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
[2020-07-20] MEDS: BUDESONIDE/FORMETEROL FUMARATE 160/4.5 mcg INHALER IH SCH ×3 (08:59→21:33)
[2020-07-20 09:22] LABS: URINE COLOR YELLOW
[2020-07-20 09:23] LABS: URINE APPEARANCE CLEAR; URINE BILIRUBIN NEGATIVE (NEGATIVE); URINE GLUCOSE (UA) 500 mg/dl (NEGATIVE); URINE KETONE NEGATIVE (NEGATIVE); URINE LEUK ESTERASE NEGATIVE (NEGATIVE); URINE NITRITE NEGATIVE (NEGATIVE); URINE PROTEIN NEGATIVE (NEGATIVE); URINE UROBILINOGEN 0.2 mg/dL (0.2-1.0)
--- NOTE | 2020-07-20 11:52 | EKG ---
Test Reason : Blood Pressure : / mmHG Vent. Rate : 083 BPM Atrial Rate : 083 BPM P-R Int : 154 ms QRS Dur : 082 ms QT Int : 368 ms P-R-T Axes : 063 030 020 degrees QTc Int : 432 ms NORMAL SINUS RHYTHM NORMAL ECG WHEN COMPARED WITH ECG OF 19-JUL-2020 19:12, NONSPECIFIC T WAVE ABNORMALITY NO LONGER EVIDENT IN ANTEROLATERAL LEADS Confirmed by MONSTER LOUISE MD ([id number]) on 07/20/2020 11:51:59 AM Referred By: Monty DIAZ Confirmed By:MONSTER LOUISE MD
--- NOTE | 2020-07-20 12:02 | EKG ---
Test Reason : Blood Pressure : / mmHG Vent. Rate : 097 BPM Atrial Rate : 097 BPM P-R Int : 142 ms QRS Dur : 078 ms QT Int : 322 ms P-R-T Axes : 079 062 048 degrees QTc Int : 408 ms NORMAL SINUS RHYTHM POSSIBLE LEFT ATRIAL ENLARGEMENT WHEN COMPARED WITH ECG OF 26-NOV-2019 15:14, NO SIGNIFICANT CHANGE WAS FOUND Confirmed by MONSTER LOUISE MD ([id number]) on 07/20/2020 12:01:47 PM Referred By: Confirmed By:MONSTER LOUISE MD
[2020-07-20] MEDS ORDERED: ALBUTEROL SO4 HFA INHALER IH PRN (12:24)
--- NOTE | 2020-07-20 12:24 | CON.PULM ---
Consult Consult Specialty:: PULMONARY Referred by:: Dr Nguyen Reason for Consultation:: shortness of breath - History of Present Illness Chief Complaint: shortness of breath History of Present Illness: 69yo male with h/o HTN, Hep C, COPD, former smoker, BPH who was admitted with worsening shortness of breath x 2 weeks. Reports a nonproductive cough and wheezing. No fevers, chills or sweats. Compliant with his inhalers. Last on prednisone in March. No recent travel or sick contacts. He is a former smoker, quit in the . - History Source History Provided By: Patient, Medical Record Limitations to Obtaining History: No Limitations - Past Medical History Pulmonary: Yes: COPD - Alcohol/Substance Use Hx Alcohol Use: No - Smoking History Smoking history: Never smoked Have you smoked in the past 12 months: No If you are a former smoker, when did you quit?: 30 years ago Home Medications - Allergies Allergies/Adverse Reactions: Allergies Allergy/AdvReac Type Severity Reaction Status Date / Time Penicillins Allergy Severe Hives Verified 07/19/20 15:25 Sulfa (Sulfonamide Allergy Severe Hives Verified 07/19/20 15:25 Antibiotics) - Home Medications Home Medications: Ambulatory Orders Amlodipine Besylate 10 mg PO HS 11/26/19 Budesonide/Formeterol Fumarate [SYMBICORT 160/4.5mcg -] 1 inh PO BID 11/26/19 Acetaminophen [Tylenol -] 1,000 mg PO Q6H PRN #120 tablet 11/29/19 Albuterol Sulfate Inhaler - [Ventolin HFA Inhaler -] 1 - 2 inh PO Q4H PRN #1 inhaler 11/29/19 Cyclobenzaprine HCl [Flexeril -] 10 mg PO BID #20 tablet 11/29/19 Gabapentin [Neurontin -] 300 mg PO TID #90 capsule 11/29/19 Ibuprofen 400 mg PO Q6H PRN #60 tablet 11/29/19 Lidocaine 5% Patch [Lidoderm -] 1 patch TP DAILY #7 patch 11/29/19 Pantoprazole Sodium 40 mg PO DAILY #30 tablet. 11/29/19 Ropinirole HCl [Requip -] 0.25 mg PO HS #30 tablet 11/29/19 Tiotropium [place] [Spiriva Respimat] 2 puff IH DAILY #1 inhaler 11/29/19 Review of Systems - Review of Systems Constitutional: reports: Weakness. denies: Chills, Fever Eyes: denies: Recent Change in Vision HENT: denies: Nasal Congestion, Throat Pain Neck: denies: Stiffness, Tenderness Cardiovascular: reports: Chest Pain, Shortness of Breath. denies: Edema, P alpitations Respiratory: reports: Cough, Exercise Intolerance, SOB on Exertion, Wheezing. denies: Hemoptysis Gastrointestinal: denies: Abdominal Pain, Nausea, Vomiting Genitourinary: denies: Dysuria, Hematuria Neurological: denies: Dizziness, Headache Endocrine: denies: Unexplained Weight Loss Physical Exam Vital Sings: Vital Signs Temperature 98.1 F 07/20/20 11:50 Pulse Rate 71 07/20/20 11:50 Respiratory Rate 18 07/20/20 11:50 Blood Pressure 124/79 07/20/20 11:50 O2 Sat by Pulse Oximetry (%) 100 07/20/20 11:50 Constitutional: Yes: Calm Eyes: Yes: Conjunctiva Clear, EOM Intact HENT: Yes: Atraumatic, Normocephalic Neck: Yes: Supple, Trachea Midline Cardiovascular: Yes: Regular Rate and Rhythm Respiratory: Yes: Poor Air Entry ...Clubbing: No Gastrointestinal: Yes: Normal Bowel Sounds, Soft. No: Tenderness Edema: No Neurological: Yes: Alert, Oriented Labs: CBC, BMP 07/20/20 06:25 07/19/20 17:50 Imaging - Results Cat Scan: Report Reviewed, Image Reviewed (no infiltrates) Assessment/Plan Acute COPD Exacerbation HTN Hep C BPH - IV medrol - inhaled bronchodilators standing and PRN - O2 to keep SpO2 >90% - azithromycin - DVT prophylaxis Thank you for this consult Augusto Johnson MD
[2020-07-20] MEDS: ALBUTEROL SO4 2.5/IPRATROPIUM 0.5 INH SOL 3 ML VIAL.NEB. NEB SCH ×3 (12:26→20:20)
[2020-07-20] MEDS ORDERED: NAPH,MB-DB/K PH,MBDB POWDER PACKET PO ONE ×2 (12:51→22:00)
[2020-07-20 13:20] VITALS: BMI 28.2
[2020-07-20] MEDS ORDERED: diphenhydrAMINE HCL 25 MG CAPSULE (FP) PO PRN (13:46)
--- NOTE | 2020-07-20 13:46 | PN ---
Physical Exam: SUBJECTIVE: Patient seen and examined in no acute distress. Speaking in full sentences. Currently on NC 1L satting at 97% OBJECTIVE: Vital Signs Period Temp Pulse Resp BP Sys/Sevilla Pulse Ox Last 24 Hr 97.5 F-98.4 F 54-103 18-21 105-137/66-91 93-100 GENERAL: The patient is awake, alert, and fully oriented, in no acute distress. HEAD: Normal with no signs of trauma. EYES: PERRL, extraocular movements intact, sclera anicteric, conjunctiva clear. No ptosis. ENT: Ears normal, nares patent, oropharynx clear without exudates NECK: Trachea midline, full range of motion, supple. LUNGS: Air entry diminished in the lower lung [place].accessory muscle use. HEART: Regular rate and rhythm, S1, S2 without murmur, rub or gallop. ABDOMEN: Soft, nontender, nondistended, normoactive bowel sounds EXTREMITIES: 2+ pulses, warm, well-perfused, no edema. NEUROLOGICAL: Cranial nerves II through XII grossly intact. Normal speech, gait not observed. PSYCH: Normal mood, normal affect. SKIN: Hive like rashes noted in the ante-cubital fossas on UE B/l, and on LE Laboratory Results - last 24 hr CBC, BMP CBC, BMP 07/20/20 06:25 07/19/20 17:50 Active Medications Generic Name Dose Route Start Last Admin Trade Name Freq PRN Reason Stop Dose Admin Albuterol Sulfate 1 puff 07/20/20 12:24 Ventolin Hfa Inhaler - IH Q4H PRN SHORT OF BREATH/WHEEZING Albuterol/Ipratropium 1 amp 07/20/20 16:00 Duoneb - NEB RQID FRANCISCO Amlodipine Besylate 10 mg 07/20/20 12:45 Norvasc - PO DAILY FRANCISCO Azithromycin 500 mg 07/21/20 10:00 Zithromax - PO 07/21/20 10:01 ONCE ONE Budesonide/Formoterol Fumarate 2 puff 07/20/20 22:00 Symbicort 160/4.5mcg - IH BID FRANCISCO Heparin Sodium (Porcine) 5,000 unit 07/20/20 14:00 Heparin - SQ TID FRANCISCO Sodium Chloride 1,000 mls @ 75 mls/hr 07/20/20 12:02 Normal Saline - IV ASDIR FRANCISCO Methylprednisolone Sodium Succinate 40 mg 07/20/20 18:00 Solu-Medrol - IVPUSH Q8H-IV FRANCISCO Potassium Phos/Sodium Phos 1 packet 07/20/20 22:00 Phos-Nak Packet - PO 07/20/20 22:01 ONCE ONE ASSESSMENT/PLAN: 69yo M w/PMHx of COPD (not on home O2), HTN, BPH, HepC (s/p treatment), previous IVDU (cocaine, heroin), and previous admissions (11/2019) and episodes (04/2020), presents to ED 2/2 to increased shortness of breath w/ non-productive cough, as well as full body rash. Acute on Chronic COPD Exacerbation -Hx of COPD w/ acute exacerbations -Lung [place] decreased breath sounds bilaterally -c/w Duonebs -c/w Symbicort -c/w Solumedrol Allergic Reaction -Rashes noted in the cubital fossa of UE b/l and on the LE -Improving since admission per ptn -Consult Allergy Outpatient: r/o allergenic cause ZORAIDA -Baseline Cr last visit: 1.1 -Current Cr 1.4 -Likely 2/2 Dehydration, w/ encourage fluids and monitor HTN -c/w Norvasc 10mg -VSS, WNL Hypophospathemia -Phosphorus 2.2: Repleted w/ 2 units Phos-Nak Dispo: Will continue medical management Visit type - Emergency Visit Emergency Visit: No - New Patient This patient is new to me today: Yes Date on this admission: 07/20/20 - Critical Care Critical Care patient: No - Discharge Referral Referred to [facility] Med P.C.: No - Medication Review Med list reviewed for High Risk Meds patients 65 and older: Yes ATTENDING PHYSICIAN STATEMENT I saw and evaluated the patient. I reviewed the resident's note and discussed the case with the resident. I agree with the resident's findings and plan as documented. SUBJECTIVE: OBJECTIVE: ASSESSMENT AND PLAN:
[2020-07-20] MEDS: SODIUM CHLORIDE 1,000 ML IV SCH (14:16)
[2020-07-20] MEDS: amLODIPine BESYLATE 10 MG TABLET (FP) PO SCH (14:16)
[2020-07-20 14:59] LABS: URINE APPEARANCE CLEAR; URINE BILIRUBIN NEGATIVE (NEGATIVE); URINE COLOR YELLOW; URINE GLUCOSE (UA) TRACE (NEGATIVE); URINE KETONE NEGATIVE (NEGATIVE); URINE LEUK ESTERASE NEGATIVE (NEGATIVE); URINE NITRITE NEGATIVE (NEGATIVE); URINE PROTEIN NEGATIVE (NEGATIVE); URINE UROBILINOGEN 0.2 mg/dL (0.2-1.0)
[2020-07-20] MEDS ORDERED: ALBUTEROL SO4 HFA INHALER IH SCH (16:00)
[2020-07-20] MEDS ORDERED: methylPREDNISolone NA SUCC 40 MG/1 ML VIAL IVPUSH SCH (18:00)
[2020-07-21] MEDS: methylPREDNISolone NA SUCC 40 MG/1 ML VIAL IVPUSH SCH ×3 (01:06→17:04)
[2020-07-21] MEDS: HEPARIN NA (PORCINE) 5,000 UNITS/ML 1ML VIAL SQ SCH ×3 (06:17→21:21)
[2020-07-21] MEDS: ALBUTEROL SO4 2.5/IPRATROPIUM 0.5 INH SOL 3 ML VIAL.NEB. NEB SCH ×4 (07:45→19:52)
[2020-07-21] MEDS ORDERED: PT OWN MED DRAWER 7, Y5N ONE ×2 (09:06→18:12)
[2020-07-21] MEDS: amLODIPine BESYLATE 10 MG TABLET (FP) PO SCH (09:15)
[2020-07-21] MEDS: BUDESONIDE/FORMETEROL FUMARATE 160/4.5 mcg INHALER IH SCH ×2 (09:15→21:23)
[2020-07-21] MEDS ORDERED: AZITHROMYCIN IVPB 500 MG/250 ML BAG IVPB SCH (10:00)
[2020-07-21] MEDS ORDERED: AZITHROMYCIN 250 MG TABLET PO ONE (10:00)
[2020-07-21 11:54] LABS: HEMATOCRIT 42.4 % (35.4-49); HEMOGLOBIN 13.6 GM/dL (11.7-16.9); LYMPH % 4.7 % (8-40); MEAN CELL VOLUME 81.3 fl (80-96); MEAN PLT VOLUME 8.2 fl (7.5-11.1); MONO % 5.1 % (3.8-10.2); NEUT % 90.2 % (42.8-82.8); PLATELET COUNT 197 K/MM3 (134-434); RBC 5.21 M/mm3 (4.00-5.60); WHITE BLOOD COUNT 15.2 K/mm3 (4.0-10.0)
--- NOTE | 2020-07-21 12:15 | CON.CARD ---
Cardiology Consult (text) - Consultation Consultation Note: cc: sob, cough, cp hpi: 69 m hx copd, htn here with sob, cough, cp. Sxs feel like his usual copd flare up. CP is across front of chest and worse with coughing. No anginal chest pain. Getting iv steroids for copd, feeling better. No palps dizzy loc pnd orthopnea le edema. pmh: per hpi psh: vein stripping social: no tob fam: no premature cad, scd ros: per hpi; all others nl medS: Ambulatory Orders Amlodipine Besylate 10 mg PO HS 11/26/19 Budesonide/Formeterol Fumarate [SYMBICORT 160/4.5mcg -] 2 puff IH BID 11/26/19 Acetaminophen [Tylenol -] 1,000 mg PO Q6H PRN #120 tablet 11/29/19 Albuterol Sulfate Inhaler - [Ventolin HFA Inhaler -] 1 - 2 inh PO Q4H PRN #1 inhaler 11/29/19 Fluticasone Prop 0.05% Nasal [Flonase -] 1 - 2 spray NS DAILY PRN 07/20/20 Umeclidinium Mobile [Incruse Ellipta] 1 puff IH DAILY 07/20/20 pe: Vital Signs Period Temp Pulse Resp BP Sys/Sevilla Pulse Ox Last 24 Hr 97.8 F-98.5 F 58-95 18-20 119-162/65-75 97-100 nad no jvd rrr s1s2 no mrg diffuse bl wheeze, nl eff abd nt nd pos bs no jaundice diaphoresis pos dp pt no carotid bruits no le e/c/c aa03 Laboratory Last Values WBC 15.2 K/mm3 (4.0-10.0) H 07/21/20 10:06 RBC 5.21 M/mm3 (4.00-5.60) 07/21/20 10:06 Hgb 13.6 GM/dL (11.7-16.9) 07/21/20 10:06 Hct 42.4 % (35.4-49) 07/21/20 10:06 MCV 81.3 fl (80-96) 07/21/20 10:06 MCH 26.0 pg (25.7-33.7) 07/21/20 10:06 MCHC 32.0 g/dl (32.0-35.9) 07/21/20 10:06 RDW 14.0 % (11.9-15.9) 07/21/20 10:06 Plt Count 197 K/MM3 (134-434) 07/21/20 10:06 MPV 8.2 fl (7.5-11.1) 07/21/20 10:06 Absolute Neuts (auto) 13.7 K/mm3 (1.5-8.0) H 07/21/20 10:06 Neutrophils % 90.2 % (42.8-82.8) H 07/21/20 10:06 Lymphocytes % 4.7 % (8-40) L D 07/21/20 10:06 Monocytes % 5.1 % (3.8-10.2) D 07/21/20 10:06 Eosinophils % 0.0 % (0-4.5) 07/21/20 10:06 Basophils % 0.0 % (0-2.0) 07/21/20 10:06 Nucleated RBC % 0 % (0-0) 07/21/20 10:06 PT with INR 11.90 SEC (9.7-13.0) 07/19/20 17:50 INR 1.01 (0.83-1.09) 07/19/20 17:50 PTT (Actin FS) 29.6 SECONDS (25.2-36.5) 07/19/20 17:50 D-Dimer 3490 ng/ml (0-500) H 07/20/20 10:10 Sodium 140 mmol/L (136-145) 07/19/20 17:50 Potassium 4.5 mmol/L (3.5-5.1) 07/19/20 17:50 Chloride 106 mmol/L (98-107) 07/19/20 17:50 Carbon Dioxide 25 mmol/L (21-32) 07/19/20 17:50 Anion Gap 9 MMOL/L (8-16) 07/19/20 17:50 BUN 17.2 mg/dL (7-18) 07/19/20 17:50 Creatinine 1.4 mg/dL (0.55-1.3) H 07/19/20 17:50 Est GFR (CKD-EPI)AfAm 58.58 07/19/20 17:50 Est GFR (CKD-EPI)NonAf 50.54 07/19/20 17:50 Random Glucose 93 mg/dL (74-106) 07/19/20 17:50 Calcium 9.3 mg/dL (8.5-10.1) 07/19/20 17:50 Phosphorus 2.2 mg/dL (2.5-4.9) L 07/20/20 06:25 Magnesium 2.0 mg/dL (1.8-2.4) 07/20/20 06:25 Ferritin 235.5 ng/ml (8-388) 07/20/20 06:25 Total Bilirubin 0.4 mg/dL (0.2-1) 07/19/20 17:50 AST 21 U/L (15-37) 07/19/20 17:50 ALT 18 U/L (13-61) 07/19/20 17:50 Alkaline Phosphatase 99 U/L (45-117) 07/19/20 17:50 LD Total 190 U/L (87-246) 07/20/20 06:25 Creatine Kinase 284 U/L (26-308) 07/19/20 17:50 Creatine Kinase Index 0.3 % (0.0-5.0) 07/19/20 17:50 CK-MB (CK-2) 1.1 ng/mL (0.5-3.6) 07/19/20 17:50 Troponin I 0.03 ng/ml (0.00-0.05) 07/19/20 20:20 C-Reactive Protein 0.4 MG/DL (0.00-0.3) H 07/20/20 06:25 B-Natriuretic Peptide 107.2 pg/ml (5-125) 07/19/20 17:50 Total Protein 7.8 g/dl (6.4-8.2) 07/19/20 17:50 Albumin 4.3 g/dl (3.4-5.0) 07/19/20 17:50 Urine Color Yellow 07/20/20 14:20 Urine Appearance Clear 07/20/20 14:20 Urine pH 6.0 (5.0-8.0) 07/20/20 14:20 Ur Specific [place] 1.019 (1.010-1.035) 07/20/20 14:20 Urine Protein Negative (NEGATIVE) 07/20/20 14:20 Urine Glucose (UA) Trace (NEGATIVE) 07/20/20 14:20 Urine Ketones Negative (NEGATIVE) 07/20/20 14:20 Urine Blood Negative (NEGATIVE) 07/20/20 14:20 Urine Nitrite Negative (NEGATIVE) 07/20/20 14:20 Urine Bilirubin Negative (NEGATIVE) 07/20/20 14:20 Urine Urobilinogen 0.2 mg/dL (0.2-1.0) 07/20/20 14:20 Ur Leukocyte Esterase Negative (NEGATIVE) 07/20/20 14:20 COVID-19 (SHIRA) Not detected (Not Detected) 07/19/20 20:20 cta chest: clear lungs, no PE, normal aorta ecg: unremarkable a/p: 69 m hx copd, htn here with sob, cough, cp. sob, copd: -symptoms consistent with copd exacerbation. no signs chf or acs. Cont steroids, abx per pulm. -echo pending htn: -stable on meds cp: -atypical MSK cp likely from coughing -ce's neg and ecg unremarkable -monitor for now
[2020-07-21 12:24] LABS: BLOOD UREA NITROGEN 18.5 mg/dL (7-18); CREATININE 1.3 mg/dL (0.55-1.3); MAGNESIUM 2.1 mg/dL (1.8-2.4); PHOSPHOROUS 2.5 mg/dL (2.5-4.9)
--- NOTE | 2020-07-21 13:15 | PN ---
Physical Exam: SUBJECTIVE: Patient seen and examined today. Noticable dry, non productive cough. Speaking in full sentences, weaned off of O2, satting on RA at 97% OBJECTIVE: Vital Signs Period Temp Pulse Resp BP Sys/Sevilla Pulse Ox Last 24 Hr 97.8 F-98.5 F 58-95 20-20 119-162/65-72 97-100 GENERAL: The patient is awake, alert, and fully oriented, in no acute distress. HEAD: Normal with no signs of trauma. EYES: PERRL, extraocular movements intact, sclera anicteric, conjunctiva clear. No ptosis. ENT: Ears normal, nares patent, oropharynx clear without exudates NECK: Trachea midline, full range of motion, supple. LUNGS: Air entry diminished in the lower lung [place] HEART: Regular rate and rhythm, S1, S2 without murmur, rub or gallop. ABDOMEN: Soft, nontender, nondistended, normoactive bowel sounds EXTREMITIES: 2+ pulses, warm, well-perfused, no edema. NEUROLOGICAL: Cranial nerves II through XII grossly intact. Normal speech, gait not observed. PSYCH: Normal mood, normal affect. SKIN: Hive like rashes are resolving Laboratory Results - last 24 hr CBC, BMP 07/21/20 10:06 07/21/20 10:06 Active Medications Generic Name Dose Route Start Last Admin Trade Name Freq PRN Reason Stop Dose Admin Albuterol Sulfate 1 puff 07/20/20 12:24 Ventolin Hfa Inhaler - IH Q4H PRN SHORT OF BREATH/WHEEZING Albuterol/Ipratropium 1 amp 07/20/20 16:00 07/21/20 07:45 Duoneb - NEB 1 amp RQID FRANCISCO Administration Amlodipine Besylate 10 mg 07/20/20 12:45 07/21/20 09:15 Norvasc - PO 10 mg DAILY FRANCISCO Administration Budesonide/Formoterol Fumarate 2 puff 07/20/20 22:00 07/21/20 09:15 Symbicort 160/4.5mcg - IH 2 puff BID FRANCISCO Administration Diphenhydramine HCl 25 mg 07/20/20 13:46 07/20/20 18:19 Benadryl - PO 25 mg Q6H PRN Administration ITCHING Guaifenesin/Codeine Phosphate 5 ml 07/21/20 09:57 Robitussin Ac - PO BID PRN COUGH Heparin Sodium (Porcine) 5,000 unit 07/20/20 14:00 07/21/20 06:17 Heparin - SQ 5,000 unit TID FRANCISCO Administration Sodium Chloride 1,000 mls @ 75 mls/hr 07/20/20 12:02 07/20/20 14:16 Normal Saline - IV 75 mls/hr ASDIR FRANCISCO Administration Methylprednisolone Sodium Succinate 40 mg 07/20/20 18:00 07/21/20 09:15 Solu-Medrol - IVPUSH 40 mg Q8H-IV FRANCISCO Administration ASSESSMENT/PLAN: 69yo M w/PMHx of COPD (not on home O2), HTN, BPH, HepC (s/p treatment), previous IVDU (cocaine, heroin), and previous admissions (11/2019) and episodes (04/2020), presents to ED 2/2 to increased shortness of breath w/ non-productive cough, as well as full body rash. Acute on Chronic COPD Exacerbation -Hx of COPD w/ acute exacerbations -Lung [place] decreased breath sounds bilaterally -c/w Duonebs -c/w Symbicort -c/w Solumedrol -Start Robitussin AC to reduce pain w/ cough -Per Cardiology: Monitor for now. ECHO --> EF 60-65. Mild mitral & tricuspid regurgitation. Elevated White Count -Likely 2/2 Steroid Administration -Monitor for signs of infection Allergic Reaction -Rashes noted in the cubital fossa of UE b/l and on the LE -Improving since admission -Consult Allergy Outpatient: r/o allergenic cause Resolving ZORAIDA -Baseline Cr last visit: 1.1 -Current Cr 1.4 --> 1.3 -Likely 2/2 Dehydration, w/ encourage fluids and monitor HTN -c/w Norvasc 10mg -VSS, WNL Dispo: Will continue medical management Visit type - Emergency Visit Emergency Visit: No - New Patient This patient is new to me today: No - Critical Care Critical Care patient: No - Discharge Referral Referred to [facility] Med P.C.: No - Medication Review Med list reviewed for High Risk Meds patients 65 and older: Yes ATTENDING PHYSICIAN STATEMENT I saw and evaluated the patient. I reviewed the resident's note and discussed the case with the resident. I agree with the resident's findings and plan as documented. SUBJECTIVE: OBJECTIVE: ASSESSMENT AND PLAN:
[2020-07-21] MEDS ORDERED: POLYETHYLENE GLYCOL 3350 119 GM BTL PO SCH (14:00)
[2020-07-21] MEDS: SODIUM CHLORIDE 1,000 ML IV SCH (14:36)
[2020-07-21] MEDS: guaiFENesin/CODEINE 5 ML UNIT-DOSE CUPS PO PRN ×2 (14:43→21:21)
--- NOTE | 2020-07-21 14:49 | PN ---
Progress Note (short form) - Note Progress Note: PULMONARY States breathing is improving. +nonproductive cough. Vital Signs Period Temp Pulse Resp BP Sys/Sevilla Pulse Ox Last 24 Hr 97.8 F-98.5 F 58-95 20-20 119-162/65-72 96-100 Gen: NAD at rest Heart: RRR Lung: scattered wheeze Abd: soft, nontender Ext: no edema CBC, BMP 07/21/20 10:06 07/21/20 10:06 Active Medications Albuterol Sulfate (Ventolin Hfa Inhaler -) 1 puff IH Q4H PRN PRN Reason: SHORT OF BREATH/WHEEZING Albuterol/Ipratropium (Duoneb -) 1 amp NEB RQID [facility] Last Admin: 07/21/20 07:45 Dose: 1 amp Documented by: Amlodipine Besylate (Norvasc -) 10 mg PO DAILY [facility] Last Admin: 07/21/20 09:15 Dose: 10 mg Documented by: Budesonide/Formoterol Fumarate (Symbicort 160/4.5mcg -) 2 puff IH BID [facility] Last Admin: 07/21/20 09:15 Dose: 2 puff Documented by: Diphenhydramine HCl (Benadryl -) 25 mg PO Q6H PRN PRN Reason: ITCHING Last Admin: 07/20/20 18:19 Dose: 25 mg Documented by: Guaifenesin/Codeine Phosphate (Robitussin Ac -) 5 ml PO BID PRN PRN Reason: COUGH Last Admin: 07/21/20 14:43 Dose: 5 ml Documented by: Heparin Sodium (Porcine) (Heparin -) 5,000 unit SQ TID [facility] Last Admin: 07/21/20 14:36 Dose: 5,000 unit Documented by: Sodium Chloride (Normal Saline -) 1,000 mls @ 75 mls/hr IV ASDIR [facility] Last Admin: 07/21/20 14:36 Dose: Not Given Documented by: Methylprednisolone Sodium Succinate (Solu-Medrol -) 40 mg IVPUSH Q8H-IV [facility] Last Admin: 07/21/20 09:15 Dose: 40 mg Documented by: Polyethylene Glycol (Miralax (For Daily Use) -) 17 gm PO DAILY [facility] Last Admin: 07/21/20 14:35 Dose: 17 gm Documented by: A/P Acute COPD Exacerbation HTN Hep C BPH - continue medrol - inhaled bronchodilators standing and PRN - O2 to keep SpO2 >90% - DVT prophylaxis
--- NOTE | 2020-07-21 15:10 | ECHO ---
Name: ORTHODOX, HILDRED Exam:Adult Echocardiogram Study Date: 07/21/2020 12:07 PM Age: 69 yrs MMode/2D Measurements & Calculations IVSd: 0.90 cm Ao root diam: 3.1 cm LVIDd: 4.4 cm LA dimension: 3.2 cm LVIDs: 3.0 cm ACS: 1.7 cm LVPWd: 1.5 cm LVPWs: 1.6 cm EDV(Teich): 86.2 ml ESV(Teich): 35.0 ml LVOT diam: 2.3 cm LAV (MOD-bp): 71.0 ml Doppler Measurements & Calculations MV E max mukul: 57.8 cm/sec Ao V2 max: 120.1 cm/sec MV A max mukul: 57.3 cm/sec Ao max P.8 mmHg MV E/A: 1.0 LANDON(V,D): 3.8 cm2 MV dec time: 0.16 sec LV V1 max P.5 mmHg TR max mukul: 187.3 cm/sec LV V1 max: 105.6 cm/sec TR max P.0 mmHg PA V2 max: 105.2 cm/sec PA max P.5 mmHg Procedure A complete two-dimensional transthoracic echocardiogram was performed (2D, M-mode, Doppler and color flow Doppler). Technically limited study. Left Ventricle The left ventricle is normal in size. Left ventricular systolic function is normal. Ejection Fraction = 60- 65%. No regional wall motion abnormalities noted. Right Ventricle The right ventricle is normal size. The right ventricular systolic function is normal. Atria The left atrial size is normal. Right atrial size is normal. Mitral Valve The mitral valve is normal in structure and function. There is mild mitral regurgitation. Tricuspid Valve The tricuspid valve is normal in structure and function. There is mild tricuspid regurgitation. Right ventricular systolic pressure is normal. Aortic Valve The aortic valve is normal in structure and function. No aortic regurgitation is present. Pulmonic Valve The pulmonic valve is not well visualized. Great Vessels The aortic root is normal size. Pericardium/Pleura There is no pericardial effusion. Interpretation Summary Technically limited study The left ventricle is normal in size. Left ventricular systolic function is normal. No regional wall motion abnormalities noted. Ejection Fraction = 60-65%. There is mild mitral regurgitation. There is mild tricuspid regurgitation. Right ventricular systolic pressure is normal. There is no pericardial effusion. Steve Soni MD 07/21/2020 03:10 PM
--- NOTE | 2020-07-21 17:50 | PN ---
Teaching Attending Note Name of Resident: Elias Ramsey ATTENDING PHYSICIAN STATEMENT I saw and evaluated the patient. I reviewed the resident's note and discussed the case with the resident. I agree with the resident's findings and plan as documented. SUBJECTIVE: Patient is feeling better , rash is improving, but continuous to cough OBJECTIVE: Vital Signs Temperature 98.4 F 07/21/20 17:08 Pulse Rate 87 07/21/20 17:08 Respiratory Rate 20 07/21/20 17:08 Blood Pressure 131/68 07/21/20 17:08 O2 Sat by Pulse Oximetry (%) 98 07/21/20 17:08 PE: per resident's note CBCD WBC 15.2 K/mm3 (4.0-10.0) H 07/21/20 10:06 RBC 5.21 M/mm3 (4.00-5.60) 07/21/20 10:06 Hgb 13.6 GM/dL (11.7-16.9) 07/21/20 10:06 Hct 42.4 % (35.4-49) 07/21/20 10:06 MCV 81.3 fl (80-96) 07/21/20 10:06 MCHC 32.0 g/dl (32.0-35.9) 07/21/20 10:06 RDW 14.0 % (11.9-15.9) 07/21/20 10:06 Plt Count 197 K/MM3 (134-434) 07/21/20 10:06 MPV 8.2 fl (7.5-11.1) 07/21/20 10:06 CMP Sodium 141 mmol/L (136-145) 07/21/20 10:06 Potassium 4.0 mmol/L (3.5-5.1) 07/21/20 10:06 Chloride 108 mmol/L (98-107) H 07/21/20 10:06 Carbon Dioxide 25 mmol/L (21-32) 07/21/20 10:06 Anion Gap 7 MMOL/L (8-16) L 07/21/20 10:06 BUN 18.5 mg/dL (7-18) H 07/21/20 10:06 Creatinine 1.3 mg/dL (0.55-1.3) 07/21/20 10:06 Random Glucose 195 mg/dL (74-106) H 07/21/20 10:06 Calcium 9.0 mg/dL (8.5-10.1) 07/21/20 10:06 Total Bilirubin 0.4 mg/dL (0.2-1) 07/19/20 17:50 AST 21 U/L (15-37) 07/19/20 17:50 ALT 18 U/L (13-61) 07/19/20 17:50 Alkaline Phosphatase 99 U/L (45-117) 07/19/20 17:50 Total Protein 7.8 g/dl (6.4-8.2) 07/19/20 17:50 Albumin 4.3 g/dl (3.4-5.0) 07/19/20 17:50 CARDIAC ENZYMES Creatine Kinase 284 U/L (26-308) 07/19/20 17:50 Troponin I 0.03 ng/ml (0.00-0.05) 07/19/20 20:20 Current Medications Generic Name Dose Route Start Last Admin Trade Name Freq PRN Reason Stop Dose Admin Albuterol Sulfate 1 puff 07/20/20 12:24 Ventolin Hfa Inhaler - IH Q4H PRN SHORT OF BREATH/WHEEZING Albuterol/Ipratropium 1 amp 07/20/20 16:00 07/21/20 15:39 Duoneb - NEB 1 amp RQID FRANCISCO Administration Amlodipine Besylate 10 mg 07/20/20 12:45 07/21/20 09:15 Norvasc - PO 10 mg DAILY FRANCISCO Administration Budesonide/Formoterol Fumarate 2 puff 07/20/20 22:00 07/21/20 09:15 Symbicort 160/4.5mcg - IH 2 puff BID FRANCISCO Administration Diphenhydramine HCl 25 mg 07/20/20 13:46 07/20/20 18:19 Benadryl - PO 25 mg Q6H PRN Administration ITCHING Guaifenesin/Codeine Phosphate 5 ml 07/21/20 09:57 07/21/20 14:43 Robitussin Ac - PO 5 ml BID PRN Administration COUGH Heparin Sodium (Porcine) 5,000 unit 07/20/20 14:00 07/21/20 14:36 Heparin - SQ 5,000 unit TID FRANCISCO Administration Sodium Chloride 1,000 mls @ 75 mls/hr 07/20/20 12:02 07/21/20 14:36 Normal Saline - IV Not Given ASDIR FRANCISCO Methylprednisolone Sodium Succinate 40 mg 07/20/20 18:00 07/21/20 17:04 Solu-Medrol - IVPUSH 40 mg Q8H-IV FRANCISCO Administration Polyethylene Glycol 17 gm 07/21/20 14:00 07/21/20 14:35 Miralax (For Daily Use) - PO 17 gm DAILY FRANCISCO Administration Home Medications Medication Instructions Recorded Amlodipine Besylate 10 mg PO HS 11/26/19 Budesonide/Formeterol Fumarate 2 puff IH BID 11/26/19 [SYMBICORT 160/4.5mcg -] Acetaminophen [Tylenol -] 1,000 mg PO Q6H PRN #120 tablet 11/29/19 Albuterol Sulfate Inhaler - 1 - 2 inh PO Q4H PRN #1 inhaler 11/29/19 [Ventolin HFA Inhaler -] Fluticasone Prop 0.05% Nasal 1 - 2 spray NS DAILY PRN 07/20/20 [Flonase -] Umeclidinium Norden [Incruse 1 puff IH DAILY 07/20/20 Ellipta] Laboratory Tests 07/19/20 07/19/20 07/19/20 17:50 20:20 20:20 D-Dimer LD Total Troponin I < 0.02 0.03 C-Reactive Protein COVID-19 ([facility]) Not detected 07/20/20 07/20/20 06:25 10:10 D-Dimer 3490 H LD Total 190 Troponin I C-Reactive Protein 0.4 H COVID-19 ([facility]) CXR: no acute pathology CTA: No PE ASSESSMENT AND PLAN: This patient is a 69yom with Pmhx of COPD(not on home O2), HTN, BPH, Hepc (s/p treatment), previous IVDU (cocaine, heroin), presents with 2 weeks of worsening SOB and nonproductive cough. # Acute exacerbation of COPD: continue IV steroid , pulm is on the case, CTA is no PE, covid markers negative except DDimer ie elevated but CTA is negative. covid is negative, LDH,ferritin, ddimer,crp,ferriting are within nl limit . 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
[2020-07-22] MEDS: methylPREDNISolone NA SUCC 40 MG/1 ML VIAL IVPUSH SCH ×2 (01:49→09:07)
[2020-07-22] MEDS: HEPARIN NA (PORCINE) 5,000 UNITS/ML 1ML VIAL SQ SCH ×2 (05:47→13:22)
[2020-07-22 07:36] LABS: BASO % 0.1 % (0-2.0); HEMATOCRIT 39.7 % (35.4-49); HEMOGLOBIN 12.9 GM/dL (11.7-16.9); LYMPH % 6.2 % (8-40); MCH 26.2 pg (25.7-33.7); MCHC 32.5 g/dl (32.0-35.9); MEAN CELL VOLUME 80.5 fl (80-96); MEAN PLT VOLUME 7.9 fl (7.5-11.1); MONO % 3.6 % (3.8-10.2); NEUT % 90.1 % (42.8-82.8); PLATELET COUNT 197 K/MM3 (134-434); RBC 4.93 M/mm3 (4.00-5.60); RDW 13.9 % (11.9-15.9); WHITE BLOOD COUNT 14.1 K/mm3 (4.0-10.0)
[2020-07-22] MEDS: ALBUTEROL SO4 2.5/IPRATROPIUM 0.5 INH SOL 3 ML VIAL.NEB. NEB SCH ×3 (08:00→15:49)
[2020-07-22 08:05] LABS: CALCIUM 8.7 mg/dL (8.5-10.1); CREATININE 1.2 mg/dL (0.55-1.3); POTASSIUM 4.3 mmol/L (3.5-5.1)
[2020-07-22] MEDS: guaiFENesin/CODEINE 5 ML UNIT-DOSE CUPS PO PRN (09:06)
[2020-07-22] MEDS: BUDESONIDE/FORMETEROL FUMARATE 160/4.5 mcg INHALER IH SCH (09:07)
[2020-07-22] MEDS: amLODIPine BESYLATE 10 MG TABLET (FP) PO SCH (09:07)
[2020-07-22] MEDS ORDERED: POLYETHYLENE GLYCOL 3350 119 GM BTL PO SCH (10:00)
--- NOTE | 2020-07-22 11:16 | PN ---
Progress Note, Physician History of Present Illness: pulmonary alert,comfortable,-c/o cp,-sob,+ cough - Current Medication List Current Medications: Active Medications Albuterol Sulfate (Ventolin Hfa Inhaler -) 1 puff IH Q4H PRN PRN Reason: SHORT OF BREATH/WHEEZING Albuterol/Ipratropium (Duoneb -) 1 amp NEB RQID [facility] Last Admin: 07/22/20 08:00 Dose: 1 amp Documented by: Amlodipine Besylate (Norvasc -) 10 mg PO DAILY [facility] Last Admin: 07/22/20 09:07 Dose: 10 mg Documented by: Budesonide/Formoterol Fumarate (Symbicort 160/4.5mcg -) 2 puff IH BID [facility] Last Admin: 07/22/20 09:07 Dose: 2 puff Documented by: Diphenhydramine HCl (Benadryl -) 25 mg PO Q6H PRN PRN Reason: ITCHING Last Admin: 07/20/20 18:19 Dose: 25 mg Documented by: Guaifenesin/Codeine Phosphate (Robitussin Ac -) 5 ml PO BID PRN PRN Reason: COUGH Last Admin: 07/22/20 09:06 Dose: 5 ml Documented by: Heparin Sodium (Porcine) (Heparin -) 5,000 unit SQ TID [facility] Last Admin: 07/22/20 05:47 Dose: 5,000 unit Documented by: Methylprednisolone Sodium Succinate (Solu-Medrol -) 40 mg IVPUSH Q8H-IV [facility] Last Admin: 07/22/20 09:07 Dose: 40 mg Documented by: Polyethylene Glycol (Miralax (For Daily Use) -) 17 gm PO BID [facility] Last Admin: 07/22/20 09:07 Dose: 17 gm Documented by: - Objective Vital Signs: Vital Signs Temperature 98 F 07/22/20 09:00 Pulse Rate 94 H 07/22/20 09:00 Respiratory Rate 20 07/22/20 09:00 Blood Pressure 137/72 07/22/20 09:00 O2 Sat by Pulse Oximetry (%) 95 07/22/20 09:00 Constitutional: Yes: Well Nourished, Calm Eyes: Yes: WNL HENT: Yes: WNL Neck: Yes: WNL Cardiovascular: Yes: Regular Rate and Rhythm, S1, S2 Respiratory: Yes: Wheezes (few wheezes) Gastrointestinal: Yes: Normal Bowel Sounds, Soft Extremities: Yes: WNL Edema: No Labs: CBC, BMP 07/22/20 06:35 07/22/20 06:35 INR, PTT INR 1.01 (0.83-1.09) 07/19/20 17:50 Assessment/Plan A/P Acute COPD Exacerbation improving HTN Hep C BPH - taper medrol - inhaled bronchodilators standing and PRN - O2 to keep SpO2 >90% - DVT prophylaxis DR DOUGLASS
--- NOTE | 2020-07-22 13:37 | PN ---
Progress Note (short form) - Note Progress Note: cc: sob, cough, cp s: sob improving. no chest pain, palps, dizziness Current Medications Generic Name Dose Route Start Last Admin Trade Name Freq PRN Reason Stop Dose Admin Albuterol Sulfate 1 puff 07/20/20 12:24 Ventolin Hfa Inhaler - IH Q4H PRN SHORT OF BREATH/WHEEZING Albuterol/Ipratropium 1 amp 07/20/20 16:00 07/22/20 11:40 Duoneb - NEB 1 amp RQID FRANCISCO Administration Amlodipine Besylate 10 mg 07/20/20 12:45 07/22/20 09:07 Norvasc - PO 10 mg DAILY FRANCISCO Administration Budesonide/Formoterol Fumarate 2 puff 07/20/20 22:00 07/22/20 09:07 Symbicort 160/4.5mcg - IH 2 puff BID FRANCISCO Administration Diphenhydramine HCl 25 mg 07/20/20 13:46 07/20/20 18:19 Benadryl - PO 25 mg Q6H PRN Administration ITCHING Guaifenesin/Codeine Phosphate 5 ml 07/21/20 09:57 07/22/20 09:06 Robitussin Ac - PO 5 ml BID PRN Administration COUGH Heparin Sodium (Porcine) 5,000 unit 07/20/20 14:00 07/22/20 13:22 Heparin - SQ 5,000 unit TID FRANCISCO Administration Methylprednisolone Sodium Succinate 40 mg 07/22/20 22:00 Solu-Medrol - IVPUSH BID FRANCISCO Polyethylene Glycol 17 gm 07/22/20 10:00 07/22/20 09:07 Miralax (For Daily Use) - PO 17 gm BID FRANCISCO Administration Vital Signs Period Temp Pulse Resp BP Sys/[place] Pulse Ox Last 24 Hr 98 F-98.9 F 73-108 20-22 120-167/68-84 95-100 nad no jvd rrr s1s2 no mrg diffuse bl wheeze, nl eff abd nt nd pos bs no jaundice diaphoresis pos dp pt no carotid bruits no le e/c/c aa03 cta chest: clear lungs, no PE, normal aorta ecg: unremarkable echo 06/2020 tls, nl LV function, mild MR, mild TR, RVSP nl, no pericardial effusion a/p: 69 m hx copd, htn here with sob, cough, cp. sob, copd: -symptoms consistent with copd exacerbation. no signs chf or acs. Cont steroids, abx per pulm. -echo unremarkable htn: -stable on meds cp: -atypical MSK cp likely from coughing -ce's neg and ecg unremarkable -monitor for now
--- NOTE | 2020-07-22 14:00 | PN ---
Teaching Attending Note Name of Resident: Jennifer Billy ATTENDING PHYSICIAN STATEMENT I saw and evaluated the patient. I reviewed the resident's note and discussed the case with the resident. I agree with the resident's findings and plan as documented. SUBJECTIVE: Patient feels well has no complaints OBJECTIVE: Vital Signs Period Temp Pulse Resp BP Sys/[place] Pulse Ox Last 24 Hr 98 F-98.9 F 73-108 20-22 120-167/68-84 95-100 GENERAL: Awake, alert, in no acute distress. HEAD: Normal with no signs of trauma. EYES: Pupils equal, round and reactive to light, extraocular movements intact, sclera anicteric, conjunctiva clear. EARS, NOSE, THROAT: Ears normal, nares patent, Moist mucous membranes. NECK: Normal range of motion, No JVD, LUNGS: Breath sounds equal, clear to auscultation bilaterally. No wheezes, and no crackles. No accessory muscle use. HEART: Regular rate and rhythm, normal S1 and S2 without murmur, rub or gallop. ABDOMEN: Soft, nontender, not distended, normoactive bowel sounds, no guarding, no rebound, MUSCULOSKELETAL: Normal range of motion at all joints. No bony deformities or te nderness. No CVA tenderness. EXTREMITIES: 2+ pulses, warm, well-perfused. No calf tenderness. No peripheral edema. NEUROLOGICAL: Cranial nerves II-XII intact. Normal speech. PSYCHIATRIC: Cooperative. Good eye contact. Appropriate mood and affect. SKIN: Warm, dry, normal turgor, no rashes or lesions noted. ASSESSMENT AND PLAN: 69 y.o M with Hx of COPD, HTN, BPH, Hep C, who presents with shortness of breath SOB: likely in setting of COPD exacerbation Off O2 at this time Steroid taper as outpatient Pulm follow up Will discharge today with outpatient follow up
[2020-07-22 17:10] VITALS: BP 141/75; PULSE 73; TEMP 97.9
--- NOTE | 2020-07-22 17:59 | DS ---
Physical Exam: SUBJECTIVE: Patient seen and examined this morning, in no acute distress, speaking in full sentences. Pre and post walk O2 done, no issues. Ptn is medically stable. OBJECTIVE: Vital Signs Period Temp Pulse Resp BP Sys/[place] Pulse Ox Last 24 Hr 97.6 F-98.1 F 73-108 20-22 137-167/61-84 95-100 PHYSICAL EXAM GENERAL: The patient is awake, alert, and fully oriented, in no acute distress. HEAD: Normal with no signs of trauma. EYES: PERRL, extraocular movements intact, sclera anicteric, conjunctiva clear. ENT: Ears normal, nares patent, oropharynx clear without exudates, moist mucous membranes. NECK: Trachea midline, full range of motion, supple. LUNGS: Breath sounds equal, clear to auscultation bilaterally, no wheezes, no crackles, no accessory muscle use. HEART: Regular rate and rhythm, S1, S2 without murmur, rub or gallop. ABDOMEN: Soft, nontender, nondistended, normoactive bowel sounds, no guarding. EXTREMITIES: 2+ pulses, warm, well-perfused, no edema. NEUROLOGICAL: Cranial nerves II through XII grossly intact. Normal speech. PSYCH: Normal mood, normal affect. SKIN: Warm, dry, normal turgor, no rashes or lesions noted. LABS Laboratory Results - last 24 hr 07/22/20 07/22/20 06:35 06:35 WBC 14.1 H RBC 4.93 Hgb 12.9 Hct 39.7 MCV 80.5 MCH 26.2 MCHC 32.5 RDW 13.9 Plt Count 197 MPV 7.9 Absolute Neuts (auto) 12.7 H Neutrophils % 90.1 H Lymphocytes % 6.2 L D Monocytes % 3.6 L Eosinophils % 0.0 Basophils % 0.1 D Nucleated RBC % 0 Sodium 142 Potassium 4.3 Chloride 110 H Carbon Dioxide 26 Anion Gap 6 L BUN 18.0 Creatinine 1.2 Est GFR (CKD-EPI)AfAm 70.58 Est GFR (CKD-EPI)NonAf 60.90 Random Glucose 127 H Calcium 8.7 HOSPITAL COURSE: Date of Admission:07/19/20 Renal US: There is no evidence of hydronephrosis, renal masses or renal calculi Chest CT: No evidence of Pulmonay Emboli CXR: Apical lordotic projection. No acute chest pathology ECHO: EF 60-65%. Mild mitral and tricuspid regurgitation. No effusion. EKG: NORMAL SINUS RHYTHM NORMAL ECG Date of Discharge: 07/22/20 69yo M w/ PMHx of COPD (previous smoker 1-2PPD, stopped smoking >20 years ago, never on home O2), HTN, BPH, IVDU (former >40 years ago) and HepC (s/p treatment), presented to the ED w/ 2 weeks of worsening SOB and nonproductive cough. Patient reported that he was previously admitted to [facility] in November for similar presentation during which time he was treated with abx and steroids, at that time a CT chest found a solitary lung nodule, which he followed up with outpatient pulmonary. Following this, patient had a similar flare up in April where he experienced SOB and cough, at which time he had a telemedecine visit with pulmonary medicine and again was treated with antibiotics and steroids. Prior to both episodes he reported a hive like maculopapular rash over his body in no distinct distribution. At presentation, in addition to SoB, ptn described a musculoskeletal pain on the R side which progressed towards the left and worsened with cough. Denied any F/C/N/LEON/Dz/LoC. During the patient's stay he was given IV Solumedrol 40mg BID, Symbicort 2puff BID, Alubterol PRN, Duonebs PRN for his COPD exacerbation. Additionally given Guafenesin AC, to help expectorate cough and reduce associated muscle pain. Benadryl was given for the rash. Last, 2/2 elevated creatinine ptn was given NS at 75 which resulted in marked improvement. At time of discharge ptn was counselled and referred to an senior director creative services for outpatient work up, as well as his government affairs fellow. Additionally he was started on a steroid taper due to the length and dosage he was on solumedrol. Ptn is currently medically stable and ready to be discharged. Minutes to complete discharge: 36 Discharge Summary Problems reviewed: Yes Reason For Visit: ACUTE CORONARY SYNDRONE Condition: Stable - Instructions Diet, Activity, Other Instructions: Summary: You were admitted to the hospital for a COPD Exacerbation and mild decreased function of your kidneys as well as a new rash. You were found to have increased work of breathing. You were treated with medication to improve your breathing as well as fluids to improve your kidney function, and medicine to decrease your rash. At time of discharge, both your COPD exacerbation, kidney issues, and rash have improved. Medications: -Please continue to take PREDNISONE by mouth, once daily, for 24 days. The dosing is as follows: Day #1: take 8 tablets (5mg each tablet) to total 40mg Day #2: take 8 tablets (5mg each tablet) to total 40mg Day #3: take 8 tablets (5mg each tablet) to total 40mg Day #4: take 7 tablets (5mg each tablet) to total 35mg Day #5: take 7 tablets (5mg each tablet) to total 35mg Day #6: take 7 tablets (5mg each tablet) to total 35mg Day #7: take 6 tablets (5mg each tablet) to total 30mg Day #8: take 6 tablets (5mg each tablet) to total 30mg Day #9: take 6 tablets (5mg each tablet) to total 30mg Day #10: take 5 tablets (5mg each tablet) to total 25mg Day #11: take 5 tablets (5mg each tablet) to total 25mg Day #12: take 5 tablets (5mg each tablet) to total 25mg Day #13: take 4 tablets (5mg each tablet) to total 20mg Day #14: take 4 tablets (5mg each tablet) to total 20mg Day #15: take 4 tablets (5mg each tablet) to total 20mg Day #16: take 3 tablets (5mg each tablet) to total 15mg Day #17: take 3 tablets (5mg each tablet) to total 15mg Day #18: take 3 tablets (5mg each tablet) to total 15mg Day #19: take 2 tablets (5mg each tablet) to total 10mg Day #20: take 2 tablets (5mg each tablet) to total 10mg Day #21: take 2 tablets (5mg each tablet) to total 10mg Day #22: take 1 tablet (5mg each tablet) to total 5mg Day #23: take 1 tablet (5mg each tablet) to total 5mg Day #24: take 1 tablet (5mg each tablet) to total 5mg -Continue to take over the counter Robitussin 5mg to 10mg NEEDED for your cough. -You have been prescribed an additional Albuterol inhaler and Symbicort Inhaler. -Please continue to take all of your other home medications as prescribed. Follow up: - Dr. Rg Sanchez (Pulmonary) Please follow up within 1-2 weeks for pulmonary testing. We have also provided a referral for Dr. Rivera who you saw while in the hospital. - Dr. Chaidez (Allergy & Immunology): Please follow-up within 1-2 weeks for allergy testing. - Cardiology Dr. García in 2 weeks. - Dr. Moe Peraza (Primary Care) - Please follow up within 1-2 weeks. You will need repeat bloodwork including a complete blood count. Additional Instructions: -You are being discharged to your home. -Please return to the Emergency Department if you experience any further COPD exacerbations, or any worsening pain, fevers, chills, shortness of breath, chest pain, or if you experience any worsening, new or concerning symptoms. Referrals: Rg Sanchez MD [Non Staff, Medical] - Elias Rivera MD [Staff Physician] - 2 Weeks Sarah Chaidez MD [Staff Physician] - Chris García MD [Staff Physician] - 2 Weeks Moe Peraza [Primary Care Provider] - Disposition: HOME - Home Medications Comprehensive Discharge Medication List: Ambulatory Orders Amlodipine Besylate 10 mg PO HS 11/26/19 Acetaminophen [Tylenol .Extra-Strength -] 1,000 mg PO Q6H PRN #120 tablet 11/29/19 Fluticasone Prop 0.05% Nasal [Flonase -] 1 - 2 spray NS DAILY PRN 07/20/20 Umeclidinium [place] [Incruse Ellipta] 1 puff IH DAILY 07/20/20 Albuterol Sulfate Inhaler - [Ventolin HFA Inhaler -] 1 - 2 inh PO Q4H PRN #1 inhaler 07/22/20 Budesonide/Formeterol Fumarate [SYMBICORT 160/4.5mcg -] 2 puff IH BID #1 inhaler 07/22/20 Prednisone See Taper PO DAILY #108 tablet 07/22/20 This patient is new to me today: No Emergency Visit: No Critical Care patient: No - Discharge Referral Referred to [facility] No ATTENDING PHYSICIAN STATEMENT I saw and evaluated the patient. I reviewed the resident's note and discussed the case with the resident. I agree with the resident's findings and plan as documented. SUBJECTIVE: OBJECTIVE: ASSESSMENT AND PLAN:
[2020-07-22] MEDS ORDERED: PT OWN MED DRAWER 7, Y5N ONE (18:10)
[2020-07-22] MEDS ORDERED: methylPREDNISolone NA SUCC 40 MG/1 ML VIAL IVPUSH SCH (22:00)
--- NOTE | 2020-07-23 13:13 | EKG ---
Test Reason : Blood Pressure : / mmHG Vent. Rate : 076 BPM Atrial Rate : 076 BPM P-R Int : 124 ms QRS Dur : 076 ms QT Int : 378 ms P-R-T Axes : 064 059 029 degrees QTc Int : 425 ms NORMAL SINUS RHYTHM LEFT ATRIAL ENLARGEMENT NONSPECIFIC ST ABNORMALITY ABNORMAL ECG Confirmed by MD GIGI, RONIT ([id number]) on 07/23/2020 1:13:06 PM Referred By: Confirmed By:RONIT YU MD
== END 2020-07-22 18:52 | disposition home or self-care (01) | DRG 191 ==
LOC: JER 15:06 → JERBED 20:14 → J8W 07-20 11:59
PROVIDERS: ADMIT Internal Medicine; ATTEND Internal Medicine
DX: J44.1 Chronic obstructive pulmonary disease with (acute) exacerbation (principal); N17.9 Acute kidney failure, unspecified; I10 Essential (primary) hypertension; N40.0 Benign prostatic hyperplasia without lower urinary tract symptoms; Z72.89 Other problems related to lifestyle; R07.89 Other chest pain; R21 Rash and other nonspecific skin eruption; E83.39 Other disorders of phosphorus metabolism; E86.0 Dehydration
CPT/HCPCS: 36415; 71045-TC-FY; 71275-TC; 76775-TC; 80048; 80053; 81003; 82550; 82553; 82728; 83615; 83735; 83880; 84100; 84484; 85025; 85027; 85379; 85610; 85730; 86140; 87389; 93005; 93010; 93306-TC; 94640; 94761; 97116-GP; 97161-GP; 99285-25; J1644; Q9967; U0003